=== PATIENT | male | born 1990 | race Caucasian/White ===

== ENCOUNTER 2021-08-27 16:37 | Inpatient (IN) | payer OTHER, SELFPAY ==
[2021-08-27] VITALS (7 sets, daily range): BP systolic 126–148; BP diastolic 69–91; PULSE 96–117; RESP 15–21; TEMP 36.8; O2SAT 99–100; BMI 29.0
[2021-08-27 16:51] LABS: Glucose Point of Care 365 mg/dl (65-105)
[2021-08-27] MEDS: LACTATED RINGERS 1,000 ML 999 ML IV CONT ×2 (17:02→17:56)
[2021-08-27 17:06] LABS: Basophils Absolute Auto 0.1 K/mm3 (0.0-0.1); Basophils Percent Auto 0.5 % (0.2-1.2); Eosinophils Percent Auto 0.2 % (0-4.4); Hematocrit 51.8 % (42.0-52.0); Hemoglobin 16.2 g/dL (14.0-18.0); Immature Granulocyte Percent A 0.9 % (0-0.5); Lymphocytes Absolute Auto 1.42 K/mm3 (0.9-3.2); Lymphocytes Percent Auto 12.7 % (18.3-44.2); Mean Corpuscular HGB Conc 31.3 g/dl (32-36); Mean Corpuscular Hemoglobin 24.9 pg (26-34); Mean Corpuscular Volume 79.6 fl (80-100); Mean Platelet Volume 10.6 fl (7.4-10.4); Monocytes Absolute Auto 1.4 K/mm3 (0.1-0.6); Monocytes Percent Auto 12.8 % (2.6-8.5); Neutrophils Absolute Auto 8.1 K/mm3 (1.3-6.7); Neutrophils Percent Auto 72.9 % (45.5-73.1); Platelet Count Result 311 k/mm3 (150-375); Red Blood Count 6.51 M/mm3 (4.6-6.20); Red Cell Distribution Width 14.8 % (11.5-14.5); White Blood Count 11.2 K/mm3 (4.5-10.0)
[2021-08-27 17:17] LABS: Alanine Aminotransferase 28 U/L (6-50); Albumin Level 4.8 g/dL (3.5-5.1); Alkaline Phosphatase 104 U/L (38-126); Aspartate Amino Transferase 16 U/L (17-59); Bilirubin,Total 0.5 mg/dL (0.2-1.3); Blood Urea Nitrogen 13 mg/dL (9-20); Calcium 8.7 mg/dL (8.4-10.2); Carbon Dioxide < 5 mmol/L (22-30); Chloride 106 mmol/L (98-107); Estimated CRCL calculation 106 ml/min; Estimated Glomerular Filt Rate > 60; Glucose 346 mg/dL (65-110); Magnesium 2.3 mg/dL (1.6-2.3); Potassium 4.8 mmol/L (3.4-5.0); Sodium 131 mmol/L (137-145)
--- NOTE | 2021-08-27 17:50 | ED.RECABL ---
HPI - Recheck/Abnormal Lab/Rx General Chief Complaint: Recheck/Abnormal Lab/Rx Stated Complaint: Possible DKA Time Seen by Provider: 08/27/21 16:47 History of Present Illness HPI narrative: 31-year-old male who states that for the last few days he has been feeling quite, nauseous, he states that he initially thought it was because he was out in the hot sun, however he has been feeling better, denies any fevers or chills, cough. Overall just does not feel well. States it feels like last time he was in DKA, he does have an insulin pump that is working. Related Data Allergies Allergy/AdvReac Type Severity Reaction Status Date / Time No Known Allergies Allergy Verified 08/27/21 16:52 Review of Systems Review of Systems: CONST: Fatigue HEENT: No sore throat C/V: No chest pain RESP: No cough GI: Nausea : No dysuria. M/S: No joint pain. SKIN: No rash. NEURO: [No headache or focal numbness or weakness] PSYCH: [No depression] [facility] Past Medical History Medical History Type 1 diabetes Family History Family History Father Family history of obesity Hypertension Family history of diabetes mellitus in first degree relative Mother Family history of obesity Family history of seizure disorder Grandparent Depression Asthma Diabetes mellitus Social History Social History Smoking status: Never smoker Alcohol intake: never Exam Narrative: EXAMINATION OF ORGAN SYSTEMS/BODY AREAS: Constitutional: Vital signs per nursing GENERAL: Does not look entirely comfortable but alert HEAD: Normal with no signs of head trauma. EYES: EOMI, conjunctiva normal ENT: Hearing grossly intact LUNGS: Tachypneic HEART: Tachycardic ABD: [Soft], [nontender to palpation] EXT: Normal range of motion SKIN: [No rashes or lesions.] NEURO: [Alert and oriented x 3. No gross focal sensory or strength deficits.] PSYCH: Normal affect Course Vital Signs Vital signs: Vital Signs Temperature 98.2 F 08/27/21 16:39 Pulse Rate 117 H 08/27/21 16:39 Respiratory Rate 16 08/27/21 16:39 Blood Pressure 148/88 H 08/27/21 16:39 Pulse Oximetry 99 08/27/21 16:39 Oxygen Delivery Room Air 08/27/21 16:39 Temperature 98.2 F 08/27/21 16:39 Pulse Rate 105 H 08/27/21 18:00 Respiratory Rate 21 H 08/27/21 18:00 Blood Pressure 143/91 H 08/27/21 18:00 Pulse Oximetry 100 08/27/21 18:00 Oxygen Delivery Room Air 08/27/21 16:39 MDM - Recheck/Abnormal Lab/Rx MDM Narrative Medical decision making narrative: 31-year-old male presents with several days of not feeling well, states it feels like his DKA, vital signs normal for tachycardia and tachypnea, on exam he is tachypneic but otherwise does not appear toxic, I am concerned for possible DKA, infection. Patient started on IV fluids. Labs notable for elevated beta hydroxybutyrate, glucose 250, undetectable bicarb. He started on insulin drip, I discussed my concern with the patient, he is amenable to admission, case discussed with hospitalist STOCK COUNTER and ICU attending. Lab Data Result diagrams: 08/27/21 17:00 08/27/21 18:22 Labs: Lab Results 08/27/21 08/27/21 08/27/21 Range/Units 16:43 16:59 16:59 WBC (4.5-10.0) K/mm3 RBC (4.6-6.20) M/mm3 Hgb (14.0-18.0) g/dL Hct (42.0-52.0) % MCV (80-100) fl MCH (26-34) pg MCHC (32-36) g/dl RDW (11.5-14.5) % Plt Count (150-375) k/mm3 MPV (7.4-10.4) fl Immature Gran % (Auto) (0-0.5) % Neut % (Auto) (45.5-73.1) % Lymph % (Auto) (18.3-44.2) % Hendry % (Auto) (2.6-8.5) % Eos % (Auto) (0-4.4) % Baso % (Auto) (0.2-1.2) % Lymph # (Auto) (0.9-3.2) K/mm3 Hendry # (Auto) (0.1-0.6) K/mm3 Eos # (Auto) (0-0.3) K/mm3 Baso # (Auto) (0.0-0.1) K/mm3 Abs Immat Gran (aut
[2021-08-27 17:51] LABS: Beta-Hydroxybutyrate/Acetoacetate 8.34 mmol/L (0.02-0.27)
[2021-08-27] MEDS: INSULIN HUMAN REGULAR (*BKC) 100 UNITS/ML 10 UNITS IV PUSH (17:56)
[2021-08-27] MEDS: METOCLOPRAMIDE HCL INJ 10 MG/2 ML VIAL IV PUSH (17:56)
[2021-08-27 17:58] LABS: Glucose Point of Care 332 mg/dl (65-105)
--- NOTE | 2021-08-27 18:02 | PC.NURSE ---
pt unable to urinate at this time and is declining straight catheter.
[2021-08-27 18:18] LABS: Fractional Inspired Oxygen 21 %; HCO3 VBG 7.7 mEq/l (24.0-30.0); PO2 VBG 35.8 mmHg (35.0-45.0)
[2021-08-27 18:19] LABS: pH VBG 7.116 (7.300-7.400)
[2021-08-27 18:20] LABS: Device ROOM AIR; PCO2 VBG 24.6 mmHg (42.0-48.0)
[2021-08-27 18:25] LABS: Appearance Urine Clear (Clear); Bilirubin Urine 1+ (Negative); Blood Urine 2+ (Negative); Color Urine Yellow (Yellow); Glucose Urine UA 2+ mg/dL (Negative); Ketones Urine 4+ mg/dL (Negative); Leukocyte Esterase Ur Negative LEU/UL (Negative); Nitrate Urine Negative (Negative); Protein Urine 3+ mg/dL (Negative); Specific Grav Ur >= 1.030 (1.001-1.035); Urobilinogen Urine 0.2 mg/dL (<2.0); pH Urine 5.5 (5.0-9.0)
[2021-08-27 18:30] LABS: Mucus Urine Rare /lpf; RBC Urine 0-2 /hpf (0-2); Squamous Epithelial Cell Urine Rare /hpf (Few); WBC Urine 0-3 /hpf
[2021-08-27 18:33] LABS: Add Urine Microscopic? YES
[2021-08-27 18:41] LABS: Anion Gap 19 mmol/L (8-16); Blood Urea Nitrogen 12 mg/dL (9-20); Calcium 8.3 mg/dL (8.4-10.2); Carbon Dioxide 6 mmol/L (22-30); Chloride 110 mmol/L (98-107); Estimated CRCL calculation 117 ml/min; Estimated Glomerular Filt Rate > 60; Glucose 252 mg/dL (65-110); Sodium 135 mmol/L (137-145)
[2021-08-27] MEDS: SODIUM CHLORIDE 0.9% IV 1,000 ML 150 ML IV CONT (18:47)
[2021-08-27] MEDS: INSULIN HUMAN REGULAR (*BKC) 100 UNITS in SODIUM CHLORIDE 0.9% IV 99 ML 5.7 UNITS IV CONT (18:47)
[2021-08-27 18:50] LABS: Hemoglobin A1C 12.7 % (<5.7)
[2021-08-27 18:57] LABS: Glucose Point of Care 242 mg/dl (65-105)
--- NOTE | 2021-08-27 19:50 | PM.IMHP ---
H&P: HPI History of Present Illness Date/Time: 08/27/21 19:50 Chief Complaint: Nausea and vomiting Narrative: This is a 31-year-old male with past medical history significant for type 1 diabetes mellitus patient is on insulin pump. Patient presented to emergency room due to nausea, vomiting ,abdominal pain, generalized weakness, muscle aches and pains, fatigue, unable to eat. Patient has been working outdoors on the [employer] where conditions with high temperatures. Patient denies any chills, fevers, rigors, near-syncope, syncope, lightheadedness, pain or burning with urination, cough or sputum production, no significant weight loss or weight gain. He has a headache. Preliminary workup in the emergency room was significant for DKA. Patient has been admitted for further evaluation management and treatment. Review of Systems Review of Systems: Nausea, vomiting, abdominal pain, generalized fatigue, weakness, muscle aches and pains. Constitutional: Constitutional: Reports body ache(s), Denies chills, Reports fatigue, Denies fever(s), Reports lethargy, Denies night sweats, Reports weakness, Denies weight gain and Denies weight loss Eyes: Eyes: Denies change in vision ENT: Denies dysphagia, Denies vertigo, Denies dizziness, Denies nasal congestion, Denies nasal discharge and Denies odynophagia Cardiovascular: Cardiovascular: Denies syncope, Denies pedal edema, Denies edema, Denies irregular heart rhythm, Denies leg edema, Denies lightheadedness, Denies radiating jaw, neck or arm pain, Denies palpitations, Denies dyspnea, Denies dyspnea on exertion, Denies orthopnea and Denies paroxysmal nocturnal dyspnea Respiratory: Respiratory: Denies chest congestion, Denies cough and Denies dyspnea Gastrointestinal: Gastrointestinal: Reports abdominal pain, Denies dyspepsia, Denies heartburn, Denies diarrhea, Reports nausea and Reports vomiting Genitourinary: Genitourinary: Denies dysuria Musculoskeletal: Musculoskeletal: Reports myalgias and Reports muscle cramps Integumentary/Breasts: Skin/Breast: Denies rash Neurologic: Reports headache(s), Denies focal weakness and Denies Sensory deficit (Neuro) Psychiatric: Psychiatric: Reports no additional psychiatric complaints and Reports as per HPI Endocrine: Endocrine: Denies cold intolerance, Reports fatigue, Denies flushing, Denies heat intolerance, Reports polyphagia, Reports polydipsia, Reports polyuria and Denies palpitations Hematologic/Lymphatic: Hematologic/Lymphatic: Reports no additional hematologic/lymphatic complaints and Reports as per HPI Allergic/Immunologic: Allergic/Immunologic: Reports no additional allergic/immunologic complaints and Reports as per HPI [facility] Past Medical History Medical History Type 1 diabetes Family History Family History Father Family history of obesity Hypertension Family history of diabetes mellitus in first degree relative Mother Family history of obesity Family history of seizure disorder Grandparent Depression Asthma Diabetes mellitus Social History Social History Smoking status: Never smoker Alcohol intake: never Substance use: never Spiritual care concerns: Yes Meds Home Medications and Allergies Home Medications Medication Instructions Recorded Confirmed Type insulin lispro 100 unit/mL 1 ml continuous subcutaneous 08/27/21 08/27/21 History subcutaneous solution (Humalog infusion DAILY U-100 Insulin) sildenafil (pulm.hypertension) 20 3 tablet PO DAILY PRN Sexual 08/27/21 08/27/21 History mg tablet Activity Allergies Allergy/AdvReac Type Severity Reaction Status Date / Time No Known Allergies Allergy Verified 08/27/21 16:52 Vital Signs Vital Signs - 24 hr 08/27/21 16:39 08/27/21 18:00 08/27/21 19:23 Temperature 98.2 F Pulse Rate 117 H 105 H
--- NOTE | 2021-08-27 19:58 | ADMGEN ---
This patient, Andrea Canales Jr., was admitted to Intensive Care Unit-2. Patient/family oriented to hospital policies and general routines including ID bracelet, bed and alarms, visiting hours, pain management, procedures, bathroom and other care routines, personal items, smoking policy, room service/diet, and visiting hours. Information on how to activate the Rapid Response Team has been discussed. Patient/Family are encouraged to report perceived risks to care and to ask questions if they do not understand what they are told or what they should do.
[2021-08-27] MEDS: ONDANSETRON INJ 4 MG/2 ML VIAL IV PUSH (20:00)
[2021-08-27] MEDS: KCL 20 MEQ/D5/0.45% SOD CHL 1,000 ML 150 ML IV CONT (20:10)
[2021-08-27] MEDS: ACETAMINOPHEN 500 MG TABLET 1000 MG PO (20:50)
[2021-08-27] MEDS: SODIUM CHLORIDE 0.9% IV 1,000 ML 500 ML IV CONT (20:51)
[2021-08-27 22:22] LABS: Anion Gap 9 mmol/L (8-16); Blood Urea Nitrogen 11 mg/dL (9-20); Calcium 7.7 mg/dL (8.4-10.2); Carbon Dioxide 13 mmol/L (22-30); Chloride 111 mmol/L (98-107); Estimated CRCL calculation 113 ml/min; Estimated Glomerular Filt Rate > 60; Glucose 181 mg/dL (65-110); Potassium 4.3 mmol/L (3.4-5.0); Sodium 133 mmol/L (137-145)
[2021-08-27 22:58] LABS: Glucose Point of Care 192 mg/dl (65-105)
[2021-08-27 22:58] LABS: Glucose Point of Care 200 mg/dl (65-105)
[2021-08-27 22:58] LABS: Glucose Point of Care 193 mg/dl (65-105)
[2021-08-28] VITALS (10 sets, daily range): BP systolic 111–144; BP diastolic 60–84; PULSE 83–99; RESP 13–18; TEMP 36.4–36.9; O2SAT 98–100; BMI 30.1
[2021-08-28 00:22] LABS: Glucose Point of Care 188 mg/dl (65-105)
[2021-08-28 01:41] LABS: Glucose Point of Care 187 mg/dl (65-105)
[2021-08-28 02:06] LABS: Anion Gap 9 mmol/L (8-16); Blood Urea Nitrogen 10 mg/dL (9-20); Calcium 7.6 mg/dL (8.4-10.2); Carbon Dioxide 15 mmol/L (22-30); Chloride 110 mmol/L (98-107); Estimated CRCL calculation 127 ml/min; Estimated Glomerular Filt Rate > 60; Glucose 174 mg/dL (65-110); Potassium 4.2 mmol/L (3.4-5.0); Sodium 134 mmol/L (137-145)
[2021-08-28] MEDS: KCL 20 MEQ/D5/0.45% SOD CHL 1,000 ML 150 ML IV CONT ×2 (02:56→09:06)
[2021-08-28 03:06] LABS: Glucose Point of Care 145 mg/dl (65-105)
[2021-08-28] MEDS: INSULIN HUMAN REGULAR (*BKC) 100 UNITS in SODIUM CHLORIDE 0.9% IV 99 ML 7.2 UNITS IV CONT (04:13)
[2021-08-28 04:18] LABS: Glucose Point of Care 151 mg/dl (65-105)
[2021-08-28 05:45] LABS: Glucose Point of Care 185 mg/dl (65-105)
[2021-08-28] MEDS: ONDANSETRON INJ 4 MG/2 ML VIAL IV PUSH (05:59)
[2021-08-28 06:02] LABS: Hematocrit 40.6 % (42.0-52.0); Hemoglobin 13.5 g/dL (14.0-18.0); Mean Corpuscular HGB Conc 33.3 g/dl (32-36); Mean Corpuscular Hemoglobin 25.4 pg (26-34); Mean Corpuscular Volume 76.3 fl (80-100); Mean Platelet Volume 10.4 fl (7.4-10.4); Platelet Count Result 206 k/mm3 (150-375); Red Blood Count 5.32 M/mm3 (4.6-6.20); Red Cell Distribution Width 14.1 % (11.5-14.5); White Blood Count 6.7 K/mm3 (4.5-10.0)
[2021-08-28 06:17] LABS: Anion Gap 10 mmol/L (8-16); Blood Urea Nitrogen 8 mg/dL (9-20); Calcium 7.5 mg/dL (8.4-10.2); Carbon Dioxide 13 mmol/L (22-30); Chloride 112 mmol/L (98-107); Estimated CRCL calculation 165 ml/min; Estimated Glomerular Filt Rate > 60; Glucose 180 mg/dL (65-110); Potassium 4.1 mmol/L (3.4-5.0); Sodium 135 mmol/L (137-145)
[2021-08-28 06:51] LABS: Glucose Point of Care 175 mg/dl (65-105)
[2021-08-28] MEDS: LACTATED RINGERS 1,000 ML 999 ML IV CONT (07:28)
[2021-08-28] MEDS: ENOXAPARIN 40 MG/0.4 ML SYRINGE SUB-Q (08:09)
[2021-08-28] MEDS: PANTOPRAZOLE SODIUM IV 40 MG VIAL IV PUSH (08:09)
[2021-08-28 08:14] LABS: Glucose Point of Care 149 mg/dl (65-105)
[2021-08-28 09:09] LABS: Glucose Point of Care 120 mg/dl (65-105)
--- NOTE | 2021-08-28 09:56 | WPDCNINT ---
Assessment and Plan Assessment and plan (1) DKA, type 1: Code(s): E10.10 - Type 1 diabetes mellitus with ketoacidosis without coma Status: Acute Assessment and Plan: Patient presented the ED with nausea, vomiting, abdominal pain, fatigue, generalized weakness -was found to be in diabetic ketoacidosis with elevated beta hydroxybutyrate and urine ketones -Patient was given a total of 4 L of IV fluids -anion gap has closed, will transition patient to long-acting insulin and sliding scale insulin -diabetic diet -hemoglobin A1c is 12.7 -wound dietitian and ict educator consulted -patient states he bought his insulin pump on line, His friend adjusts his insulin setting -follows Dr. Zhang at [facility] endocrinology (2) Nausea & vomiting: Code(s): R11.2 - Nausea with vomiting, unspecified Status: Acute Assessment and Plan: Resolved, likely related DKA Plan life educator to evaluate the patient Dietitian consult Diabetic diet Additional Plan DVT prophylaxis: Lovenox Code status: Full code Critical care time spent: 42 minutes This dictation may have been done utilizing a voice recognition system. Attempts have been made to correct errors. However, there may be uncorrected grammatical, spelling, and recognition errors present. Due to a high probability of clinically significant, life threatening deterioration, the patient required my highest level of preparedness to intervene emergently and I personally spent this critical care time directly and personally managing the patient. This critical care time included obtaining a history; examining the patient; pulse oximetry; ordering and review of studies; arranging urgent treatment with development of a management plan; evaluation of patient's response to treatment; frequent reassessment; and discussions with other providers. It was exclusive of separately billable procedures and treating other patients and teaching time. Please see Assessment and Plan section and the rest of the note for further information on patient assessment and treatment Career Services Representative Consult Note Consult date: 08/28/21 Reason for consult: Diabetic ketoacidosis, nausea, vomiting, elevated blood sugars, insulin pump not working HPI: Andrea Canales JrKailey is a 31 year old male with past medical history of type 1 diabetes on insulin pump, presented the ED on 152 with complains of nausea, vomiting, abdominal pain, generalized weakness, muscle aches and pains, fatigue, decreased oral intake, polyuria, polydipsia. 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 Patient also thinks that his insulin pump was not functioning well as his blood sugars were high. In the ED patient was found to anion gap metabolic acidosis with hyperglycemia along with elevated beta hydroxybutyrate, urine with ketones and protein and glucose. Patient was given 2 L IV fluids in the ER and additional 1 L fluid bolus in the ICU, patient was placed on insulin infusion and transferred to the ICU for further management. Patient seen and examined this morning in the ICU, pleasant gentleman in no acute distress, states he had episodes of nausea and emesis this morning but denies any chest pain, shortness of breath, abdominal pain, shortness of breath at this time. Remains on insulin infusion, his CO2 is 13 but his anion gap has closed. Patient is hemodynamically stable, afebrile, adequate urine output. I have asked the bedside RN to given additional IV fluid bolus of 1 L normal saline as patient was tachycardic. Once his bolus was done patient's heart rate has improved, Currently in sinus rhythm, regular rate. Review of Systems Review of Systems: All systems reviewed & are unremarkable except as noted in HPI and below PMFSH Past Medical History Medical History Type 1 diabetes Family History Family History (Reviewed 08/27
[2021-08-28 10:02] LABS: Glucose Point of Care 125 mg/dl (65-105)
[2021-08-28 10:42] LABS: Anion Gap 6 mmol/L (8-16); Blood Urea Nitrogen 7 mg/dL (9-20); Calcium 7.6 mg/dL (8.4-10.2); Carbon Dioxide 17 mmol/L (22-30); Chloride 113 mmol/L (98-107); Estimated CRCL calculation 165 ml/min; Estimated Glomerular Filt Rate > 60; Glucose 120 mg/dL (65-110); Potassium 3.6 mmol/L (3.4-5.0); Sodium 136 mmol/L (137-145)
[2021-08-28] MEDS: INSULIN GLARGINE (*BKC) 100 UNITS/ML 40 UNITS SUB-Q (11:07)
--- NOTE | 2021-08-28 12:05 | PCDIET ---
Dietitian consult for DKA. See Nutritional Teaching Intervention. Thank you for the consult.
--- NOTE | 2021-08-28 12:23 | PM.IMPN ---
Progress Note: A&P Assessment and Plan (1) DKA, type 1: Code(s): E10.10 - Type 1 diabetes mellitus with ketoacidosis without coma Status: Acute Assessment and Plan: Patient presented the ED with nausea, vomiting, abdominal pain, fatigue, generalized weakness Noted to be in DKA with elevated beta hydroxybutyrate and urine ketones Received IV fluid resuscitation and IV insulin Now transition to long-acting insulin and sliding scale insulin with meals Diabetic diet A1c is 12.7. hospital orderly consultation Continue Lantus and Humalog/NovoLog SSI (2) Nausea & vomiting: Code(s): R11.2 - Nausea with vomiting, unspecified Status: Acute Assessment and Plan: Resolved, likely related DKA Plan hospice plan administrator to evaluate the patient Dietitian consult Diabetic diet Additional Plan DVT prophylaxis: Lovenox Code status: Full code Subjective Date/time seen: 08/28/21 12:23 Interval history: HPI:This is a 31-year-old male with past medical history significant for type 1 diabetes mellitus patient is on insulin pump.? Patient presented to emergency room due to nausea, vomiting ,abdominal pain, generalized weakness, muscle aches and pains, fatigue, unable to eat.? Patient has been working outdoors on the [place] where conditions with high? temperatures.? Patient denies any chills, fevers, rigors, near-syncope, syncope, lightheadedness, pain or burning with urination, cough or sputum production, no significant weight loss or weight gain.? He has a headache.? Preliminary workup in the emergency room was significant for DKA.? Patient has been admitted for further evaluation management and treatment. 08/28/2021 no overnight events. He is off insulin drip. Started on Lantus based. He is normally on insulin pump. Review of Systems Review of Systems: All systems reviewed & are unremarkable except as noted in HPI and below Exam Narrative: General: Well-built gentleman in no acute distress HEENT: Pupils equal reactive, sclera is clear, moist oral mucosa Neck:Supple, no cervical lymphadenopathy upple Respiratory: Clear to auscultation bilaterally, no wheezing Cardiac: S1-S2 normal, regular rate and rhythm Abdomen: Soft, nontender, nondistended, Normoactive bowel sounds Extremities: No Edema, palpable pedal pulse Neuro: Patient is awake, alert, oriented x3, nonfocal Skin: No lesions noted, skin is warm and intact Psych: Normal affect and mentation Objective Data Vital Signs Vital Signs: Vital Signs - 24 hr 08/27/21 16:39 08/27/21 18:00 08/27/21 19:23 Temperature 98.2 F Pulse Rate 117 H 105 H 110 H Respiratory Rate 16 21 H 18 Blood Pressure 148/88 H 143/91 H 147/91 H Pulse Oximetry 99 100 100 Oxygen Delivery Room Air 08/27/21 21:13 08/27/21 20:00 08/27/21 22:00 Temperature Pulse Rate 100 103 H 98 Respiratory Rate 16 Blood Pressure Pulse Oximetry 100 Oxygen Delivery Room Air 08/27/21 22:00 08/27/21 23:41 08/28/21 00:00 Temperature 98.3 F Pulse Rate 100 96 99 Respiratory Rate 16 15 16 Blood Pressure 126/69 135/82 Pulse Oximetry 100 100 100 Oxygen Delivery Room Air 08/28/21 00:00 08/28/21 02:00 08/28/21 02:00 Temperature Pulse Rate 95 91 92 Respiratory Rate 13 Blood Pressure 133/84 Pulse Oximetry 100 Oxygen Delivery 08/28/21 03:30 08/28/21 04:00 08/28/21 04:00 Temperature 98.5 F Pulse Rate 91 93 97 Respiratory Rate 14 15 Blood Pressure 113/63 Pulse Oximetry 100 100 Oxygen Delivery Room Air 08/28/21 06:00 08/28/21 06:00 08/28/21 08:00 Temperature 97.9 F Pulse Rate 89 89 87 Respiratory Rate 18 13 Blood Pressure 144/80 H 111/60 Pulse Oximetry 100 100 Oxygen Delivery 08/28/21 08:00 08/28/21 08:00 08/28/21 10:00 Temperature Pulse Rate 85 86 Respiratory Rate 15 Blood Pressure 133/81 Pulse Oximetry 100 100 Oxygen Delivery Room Air 08/28/21 10:00 08/28/21 12:00 Temperat
[2021-08-28 12:24] LABS: Glucose Point of Care 108 mg/dl (65-105)
--- NOTE | 2021-08-28 16:40 | PC.NURSE ---
pt transferred in to room 260 via wheelchair, oriented to new room and environment, reviewed plan of care and new orders, pt has dinner tray ordered, will monitor BS per MD order
--- NOTE | 2021-08-28 16:44 | PC.NURSE ---
This patient, Andrea Canales Jr., was transferred to [260] on 08/28/21 at 1635. Personal belongings sent with patient. Report given to [NEHEMIAS Bright @ [id number] ]. Appropriate documentation sent with patient.
[2021-08-28 17:29] LABS: Glucose Point of Care 206 mg/dl (65-105)
[2021-08-28] MEDS: INSULIN ASPART (*BKC) 100 UNITS/ML SUB-Q (18:10)
[2021-08-28 21:10] LABS: Glucose Point of Care 262 mg/dl (65-105)
[2021-08-29 05:35] VITALS: BP 117/75; PULSE 85; RESP 14; TEMP 36.4; O2SAT 100
[2021-08-29 05:53] LABS: Hematocrit 39.2 % (42.0-52.0); Hemoglobin 12.7 g/dL (14.0-18.0); Mean Corpuscular HGB Conc 32.4 g/dl (32-36); Mean Corpuscular Hemoglobin 25.2 pg (26-34); Mean Corpuscular Volume 77.8 fl (80-100); Mean Platelet Volume 10.5 fl (7.4-10.4); Platelet Count Result 174 k/mm3 (150-375); Red Blood Count 5.04 M/mm3 (4.6-6.20); Red Cell Distribution Width 14.4 % (11.5-14.5); White Blood Count 4.5 K/mm3 (4.5-10.0)
[2021-08-29 06:06] LABS: Anion Gap 5 mmol/L (8-16); Blood Urea Nitrogen 6 mg/dL (9-20); Calcium 7.9 mg/dL (8.4-10.2); Carbon Dioxide 22 mmol/L (22-30); Chloride 110 mmol/L (98-107); Estimated CRCL calculation 165 ml/min; Estimated Glomerular Filt Rate > 60; Glucose 213 mg/dL (65-110); Phosphorus 1.7 mg/dL (2.5-4.5); Potassium 3.5 mmol/L (3.4-5.0); Sodium 137 mmol/L (137-145)
[2021-08-29 07:30] LABS: Glucose Point of Care 213 mg/dl (65-105)
[2021-08-29] MEDS: ENOXAPARIN 40 MG/0.4 ML SYRINGE SUB-Q (08:08)
[2021-08-29] MEDS: PANTOPRAZOLE SODIUM IV 40 MG VIAL IV PUSH (08:08)
[2021-08-29 11:37] LABS: Glucose Point of Care 201 mg/dl (65-105)
--- NOTE | 2021-08-29 12:30 | PCCDE ---
diabetes education f/up: spoke to Dr Myers this am regarding concern that ICR and SF may be too strong. Pt hasn't been using them and potential for hypoglycemia. However pt declined to change his settings. He sts these are the same settings he used before and they worked. Pt again confirms that he will be seeing endo 10/08 as the doctor will no longer rx his insulin if he does not f/up.
--- NOTE | 2021-08-29 12:55 | PM.DS ---
DS: Admitting Diagnosis Discharge Date 08/29/2021 Admitting Diagnosis DKA DS: Discharge Diagnosis Discharge Diagnosis (1) DKA, type 1: Code(s): E10.10 - Type 1 diabetes mellitus with ketoacidosis without coma Status: Acute Assessment and Plan: Patient presented the ED with nausea, vomiting, abdominal pain, fatigue, generalized weakness he was Noted to be in DKA with elevated beta hydroxybutyrate and urine ketones he was admitted to the ICU and Received IV fluid resuscitation and IV insulin he was then transitioned to long-acting insulin with sliding scale with meals. He was started on diabetic diet which he tolerated well. His A1c is 12.7. Diabetes could was consulted. He is on insulin pump prior to admission and has been on the pump for the past several years. He has a basal rate of 2 units/hour of insulin in his pump along with bolus regimen. His IC artery is 1 is to 6 along with correctional factor 1 is to 15. he however has not been using is bolus regimen at all. It was advised him to use bolus regimen whenever is controlled his blood. he does follow is this is in [place]. With his high ICR suggested to lower the setting to 1 : 10 or 1:15 . However the patient was hesitant in Any changes in his insulin pump setting. 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 his pump was started back on 08/29/2021 morning. (2) Nausea & vomiting: Code(s): R11.2 - Nausea with vomiting, unspecified Status: Acute Assessment and Plan: Resolved, likely related DKA Plan ict educator to evaluate the patient Dietitian consult Diabetic diet DS: Summary Hospital Course Hospital Course: see above Time Spent with Patient Time attestation: Total time spent providing and/or coordinating discharge services: 60 minutes Exam Narrative: General: Well-built gentleman in no acute distress HEENT: Pupils equal reactive, sclera is clear, moist oral mucosa Neck:Supple, no cervical lymphadenopathy upple Respiratory: Clear to auscultation bilaterally, no wheezing Cardiac: S1-S2 normal, regular rate and rhythm Abdomen: Soft, nontender, nondistended, Normoactive bowel sounds Extremities: No Edema, palpable pedal pulse Neuro: Patient is awake, alert, oriented x3, nonfocal Skin: No lesions noted, skin is warm and intact Psych: Normal affect and mentation DS: Data Data Completed and Pending Labs on day of discharge: Labs from last 24 hours 08/29/21 08/29/21 08/29/21 11:34 07:28 05:35 WBC RBC Hgb Hct MCV MCH MCHC RDW Plt Count MPV Sodium 137 Potassium 3.5 Chloride 110 H Carbon Dioxide 22 Anion Gap 5 L BUN 6 L Creatinine 0.60 L Estim Creat Clear Calc 165 Estimated GFR > 60 Glucose 213 H POC Capillary Glucose 201 H 213 H Calcium 7.9 L Phosphorus 1.7 L Magnesium 2.0 08/29/21 08/28/21 08/28/21 05:35 21:02 17:26 WBC 4.5 RBC 5.04 Hgb 12.7 L Hct 39.2 L MCV 77.8 L MCH 25.2 L MCHC 32.4 RDW 14.4 Plt Count 174 MPV 10.5 H Sodium Potassium Chloride Carbon Dioxide Anion Gap BUN Creatinine Estim Creat Clear Calc Estimated GFR Glucose POC Capillary Glucose 262 H 206 H Calcium Phosphorus Magnesium Discharge Plan Discharge Attending physician on discharge: Renaldo Myers Consulting providers: Alan Caro Discharging Clinician: Renaldo Myers Anticipated Discharge Date/Time: 08/29/21 12:50 Patient Disposition: Home, Self-Care Activity: as tolerated Diet: diabetic Patient Instructions: Antibiotic Form, Diabetic Ketoacidosis (DC), Basic Carbohydrate Counting (DC) Stand Alone Forms: General Discharge Information Follow-up/Referrals: Teddy Atkins DO [Primary Care Provider] - 1 Week Discharge Medications: New (DME) blood-gluc
== END 2021-08-29 13:16 | disposition home or self-care (01) | DRG 639 ==
LOC: ANHED 18:53 → ANHICU 19:02 → ANH2MED 08-28 16:37
PROVIDERS: Internal Medicine; Admitting Provider Internal Medicine; Emergency Provider Emergency Medicine; PCP Internal Medicine; Visit Provider Internal Medicine
DX: E10.10 Type 1 diabetes mellitus with ketoacidosis without coma (principal)
CPT/HCPCS: 36415; 80048; 80053; 81001; 82010; 82803; 82948; 83036; 83735; 84100; 85025; 85027; 96360; 99285; A9270; C9113; J1650; J1815; J2405; J2765; J3480; J7030; J7120

== ENCOUNTER 2023-05-11 07:59 | Outpatient (CLI) | payer OTHER, SELFPAY ==
--- NOTE | ~2023-05-11 | US_ITS ---
Limited Abdominal Sonogram: Real-time sonographic imaging of the right upper quadrant was performed. Clinical History: Abnormal liver enzymes Findings: The liver appears mildly echogenic with no evidence of mass lesion or bile duct dilatation . Main portal vein demonstrates normal direction of flow. The gallbladder is well distended, and appe ars normal with no evidence of gallstone or wall thickening. The common bile duct measures 3 mm. The visualized pancreas, aorta, and IVC are unremarkable. Right kidney measures 11.6 cm in length, witho ut hydronephrosis. Impression: Possible fatty infiltration of liver. Reviewed, dictated and finalized at location . [place] SURGERY DOCTOR Impression: Possible fatty infiltration of liver.
== END 2023-05-11 08:00 ==
PROVIDERS: PCP Student in an Organized Health Care Education/Training Program; Visit Provider Student in an Organized Health Care Education/Training Program
DX: R74.8 Abnormal levels of other serum enzymes (principal)
CPT/HCPCS: 76705

== ENCOUNTER 2024-10-08 16:20 | Emergency (ER) | payer OTHER, SELFPAY ==
--- NOTE | ~2024-10-08 | XR_ITS ---
EXAM: XR foot LT min 3V DATE: 10/08/2024 16:44 HISTORY: pain . COMPARISON: None available. FINDINGS: Normal mineralization. Transverse nondisplaced fractures in the proximal left third fourth and fifth metatarsals, with sclerotic appearing margins. 2 mm distraction noted in the fifth metatar doug fracture, fractures are otherwise nondisplaced. No lytic or blastic lesion. Joint spaces are main tained. No erosion or periosteal change. Mild vascular calcification. Suggestion of soft tissue swell ing over the fracture site. IMPRESSION: Transverse fractures of the proximal left third through fifth metatarsals. 2 mm distracti on noted in the fifth metatarsal fracture. Sclerotic margins indicated these may be subacute fracture s. Reviewed, dictated and finalized at location K. IMPRESSION: Transverse fractures of the proximal left third through fifth metat arsals. 2 mm distraction noted in the fifth metatarsal fracture. Sclerotic jayro ins indicated these may be subacute fractures.
--- OUTSIDE RECORDS SUMMARY | 2024-10-08 16:23 | XMS_ITS | Continuity of Care Document ---
Author Organization [facility] Address [address] [address] [place] [address] Phone Care Team Providers Care Senior Applications Architect Name Role Phone Danilo Perez MD Unavailable Unavailable Allergies, Adverse Reactions, Alerts Substance Reaction Status Criticality No Known Allergies Active No Inform ation Procedures Procedure Date PREV VISIT, EST, AGE 18-39 OFFICE/OUTPATIENT VISIT, EST PREV VISIT, EST, AGE 18-39 OFFICE/OUTPATIENT VISIT, EST PREV VISIT, EST, AGE 18-39 Advance Directives Directive Yes / No Effective Date File Name No Information Encounters Encounter Description Practice Location Reason(s) For Visit Diagnoses Date Provider Providers Copied on Encounter PREV VISIT, EST, AGE 18-39 [facility], [address] [place] [address] [place], [id number], tel:[phone] [facility] DM (chief complaint) cough1 (chief complaint) hypokalemi a1 (chief complaint) anemia1 (chief complaint) Type 1 diabetes mellitus without complicationsHypoka lemiaAnemiaDizzines sEncounter for general adult medical exam w abnormal findingsCoughEncntr for general adult medical exam w/o abnormal findings May-201 8 Chris Carrasco. [address], [facility] [place], [id number] , [place]. tel:[phone] Referring Provider: Danilo Perez [address], [place], [place], [id number]. tel:[phone] PREV VISIT, EST, AGE 18-39 [facility], [address] [place], [id number], [place] tel:[phone] [facility] Physical (chief complaint) Encounter for general adult medical exam w abnormal findingsType 1 diabetes mellitus without complicationsAcute bronchitis, unspecified 7 Chris Carrasco. [address], [place], [place], [id number] , . tel:[phone] Referring Provider: iJm Fontaine [address], [place], [place], [id number]. tel:[phone] PREV VISIT, EST, AGE 18-39 [facility], [address], [place], [place], [id number], tel:[phone] [facility] Physical (chief complaint) Routine Medical ExamDietary surveillance and counselingRoutine Medical Exam 5 Chris Carrasco. [address], [place], [place], [id number] , . tel:[phone] Referring Provider: Jim Font[address], [place], [place], [id number]. tel:[phone] Family History Family Member Type Diagnosis Age At Onset Father Problem (finding) Hypertension Mother Problem (finding) Anxiety Mother Problem (finding) Back Pain Father Problem (finding) Coronary artery disease Father Problem (finding) Diabetes mellitus Payers Payer name Insurance type Covered alliance party ID Authoriza tion(s) No Information Social History Type Description Quantity Date Captured Comments Alcohol Use Details No Caffeine Use Details Unknown Tobacco Use Status Never smoked tobacco 2017 Smoking Status Never smoker Sex Male Vital Signs Date / Time: Height Weight BMI Pulse Rate Blood Pressure Temperature Respiratory Rate Body Surface Area Head Circumference BMI percentile Pulse Ox Inhaled Ox 5:30 PM 69.00 in 199.80 lbs 29.5 1 kg/m eter (2) 91 /min 122/85 mm[Hg] 98.3 F 16 /min Chief Complaint And Reason For Visit From encounter dated '06/07/2017 16:15'. DM (chief complaint). Description: Pt recently went to hospital for DKA and his BG was on average around 300. Pt got his insulin pump done and his Bg is around 121. Pt states that he feels slightly dizzy, mild photophobia without blurred vision. Pt denies any headache. cough1 (chief complaint). Description: Pt has mild dry cough for 2-3 days. Pt denies any chest painor sob. Pt denies any sore throat, fever headache hypokalemia1 (chief complaint). Description: Pt did have mild hypokalemia. which was replaced by hospital. Pt denies any chest pain palpitation anemia1 (chief complaint). Description: Pt had mild anemia in hospital. Pt denies any blood loss. Pt denies any chest pain or headache. Pt denies any orthostasis Plan Of Treatment Date Type Action Status Goal Special diet education compl eted Referral Ordered: Endocrinology, Diabetes and Metabolism (related to Type 1 diabetes mellitus without complications) ordered Referral Ordered: Referrals: Endocrinology, Diabetes and Metabolism. Evaluate and treat ordered Referral Ordered: Referral: Otolaryngology. ordered History Of Present Illness Encounter Date Complaint History Of Prese nt Illness DM Pt recently went to hospital for DKA and his BG was on average around 300. Pt got his insulin pump done and his Bg is around 121. Pt states that he feels slightly dizzy, mild photophobia without blurred vision. Pt denies any headache. cough1 Pt has mild dry cough for 2-3 days. Pt denies any chest pain or sob. Pt denies any sore throat, fever headache hypokalemia1 Pt did have mild hypokalemia. which was replaced by hospital. Pt denies any chest pain palpitation anemia1 Pt had mild anem ia in hospital. Pt denies any blood loss. Pt denies any chest pain or headache. Pt denies any orthostasis Physical Pt needs annual physical. pt has poorly controlled diabete. Pt use humalog insulin pump and his BG is over 400 all the time. Pt states that he is out of [employer] inset 30 infusion system for 2 weeks now and he has been using syringes to give himself insulin. Pt has not been been able to use the pump due to lack of above infusion system. Pt tried to call his endo mutlple times but he could not get in touch with the endo. His BG is aroudn 400 today. pt denies any polyuira, polyipdisa Pt denies any vision change. Pt also c/o sinus congestion productive coughing with yellow and green phlegm for one week. Pt denies any sob or chest pain. pt denies any fever. Instructions Date Instruction Additional Infor mation Special diet education Related t o Body mass index (BMI) 29.0-29.9, adult Increase physical activity Relat ed to Hypokalemia Weight management Related to Hyp okalemia Prescribed Diet Educ ation/Lifestyle Education Regarding Diet Related to Dietary Surveillance and Counseling Prescribed Activity and Exercise Education Related to Dietary Surveillance and Counseling Increase physical activity Relat ed to Encounter for general adult medical exam w abnormal findings Weight management Related to Enc ounter for general adult medical exam w abnormal findings Physical activity counseling Rel ated to Dietary surveillance counseling Decrease caloric intake Related to Dietary surveillance counseling Assessments Type Assessment Date assessment Type 1 diabetes mellitus without complications assessment Hypokalemia assessment Anemia assessment Dizziness assessment Encounter for general adult medi lauryn exam w abnormal findings assessment Cough assessment Encntr for general adult medical exam w/o abnormal findings Mental Status Date Cognitive Assessment Orientation - [place] ed to time, place, person, situation.
--- OUTSIDE RECORDS SUMMARY | 2024-10-08 16:23 | XMS_ITS | Clinical Summary ---
Author Organization [facility] Risk Ident Address [address] [place] [address] Care Team Providers Care Cleaner Wall Name Role Phone Harsh Tom Primary Care Provider + Source Comments [facility] Risk Ident,non-owned Affiliates and Associated Physician Practices is amultiple site organization consisting of ambulatory clinics and hospital sitesin [place], [place] and [place]. This disclosure is being madepursuant to the Care Everywhere program and may not contain all information available regarding this patient. Last updated 17.[facility] Risk Ident Allergies No known active allergies Medications * Be aware that medications may not be up to date on this document. Alwaysverify current medications with the patient. ONE TOUCH ULTRASOFT LANCETS MISC Use 2 Each as instructed once daily Active blood glucose test strip Use 2 strips as instructed once daily Active Blood Glucose Monitoring Suppl (ONE TOUCH ULTRA 2) w/Device KIT Use 2 Each once daily Active blood glucose monitoring device (ONE TOUCH ULTRA) device TEST BS 4 TO 6 XD. 01/07/20 19 Active Continuous Blood Gluc Animal Nursery Worker (DEXCOM G6 KNOT SAW OPERATOR) DEVIIndications: DM w/ coma type I, uncontrolled Use 1 Each once daily E10.65 TYPE 1 DM WITH HYPERGLYCEMIA UNCONTROLLED 1 Each 12/18/19 20 Active Continuous Blood Gluc Sensor (DEXCOM G6 SENSOR) MISCIndications: DM w/ coma type I, uncontrolled Use 1 packet every 10 days DISPENSE 3 PACKET TO CHANGE EVERY 10 DAYS. 3 Each 3 12/18/19 20 Active Continuous Blood Gluc Transmit (DEXCOM G6 TRANSMITTER) MISCIndications: DM w/ coma type I, uncontrolled Use 1 Each Every 90 days CHANGE EVERY 90 DAYS 1 Each 3 12/18/19 20 Active sildenafil (REVATIO) 20 MG tabletIndication s:DM w/ coma type I, uncontrolled Take 3 tablets 30 min before sex 30 tablet 5 11/07/19 21 Active HUMALOG 100 UNIT/ML vialIndications: DM w/ coma type I, uncontrolled INJECT 70 UNITS TO 100 UNITS SUBCUTANEOUSLY ONCE DAILY VIA INSULIN PUMP 30 mL 07/23/19 22 Active Active Problems Problem Noted Date Diagnosed Date Type 1 diabetes mellitus without complication Family History Medical History Relation Name Comments CAD (Coronary Artery Disease) Father Diabetes - Type 2 Father Hypertension Father Cancer - Colon Maternal Grandmother CAD (Coronary Artery Disease) Paternal Grandfather Diabetes - Type 2 Paternal Grandfather Relation Name Status Comments Father Alive Maternal Grandfather Alive Maternal Grandmother Alive Mother Alive Paternal Grandfather Alive Paternal Grandmother Alive Social History Tobacco Use Types Packs/Day Years Used Date Smoking Tobacco: Never Smokeless Tobacco: Never Alcohol Use Standard Drinks/Week Comments Not Currently 0 (1 standard drink = 0.6 oz pur e alcohol) twice a month Sex and Gender Information Value Date Recorded Sex Assigned at Not on file Legal Sex Male 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 Gender Identity Not on file Sexual Orientation Not on file Last Filed Vital Signs Vital Sign Reading Time Taken Comments Blood Pressure 122/86 12/28/2019 9:02 AM CDT Pulse 98 12/14/2019 8:31 AM CDT Temperature 36.5 C (97.7 F) 12/14/2019 8:31 AM CDT Respiratory Rate - - Oxygen Saturation 100% 12/14/2019 8:31 AM CDT Inhaled Oxygen Concentration - - Weight 95.9 kg (211 lb 6.4 oz) 12/28/2019 9:02 A M CDT Height 172.7 cm (5' 8) 12/28/2019 9:02 AM CDT Body Mass Index 32.14 12/28/2019 9:02 AM CDT Plan of Treatment Health Maintenance Due Date Last Done Comments HIV SCREENING 2005 HEPATITIS C SCREENING 03/24/2008 DIABETES-SERUM CREATININE 2008 DTAP/TDAP/TD VACCINES (1 - Tdap) 2009 HEPATITIS B VACCINE (1 of 3 - 19+ 3-dose series) 2009 PNEUMOCOCCAL VACCINE (1 of 2 - PCV) 2009 HPV VACCINE (1 - 3-dose SCDM series) 2017 DIABETES-FOOT EXAM WITH MONOFILAMENT 12/14/2019 DIABETES-HGB A1C 06/13/2020 12/14/2019 COVID-19 VACCINE (1 - 2023-2 5 season) 2023 DIABETES RETINOPATHY SCREENING 12/19/2023 12/18/2021 DEPRESSION SCREENING 03/15/2024 DIABETES - URINE PROTEIN SCREENING 03/15/2024 INFLUENZA VACCINE (#1) 2024 ZOSTER VACCINE (1 of 2) 2040 HIB VACCINE Aged Out No longer eligi ble based on patient's age to complete this topic MENINGOCOCCAL (Group B) VACC INE SHARED DECISION-MAKING Aged Out No longer eligibl e based on patient's age to complete this topic MENINGOCOCCAL GROUPS A/C/Y/W VACCINE Aged Out No longer eligible b ased on patient's age to complete this topic Goals Goal Patient Goal Type Associated Problems Recent Progress Patient-Stated? Author Medication Management General Yes Sonia Martinez, NEHEMIAS Follow-up with Diabetes Clinic as recommended by Provider General Yes Sonia Martinez, NEHEMIAS Plan meals Lifestyle Yes Sonia Martinez RN Note: Using meal raw material planner. Procedures Procedure Name Priority Date/Time Associated Diagnosis Comments EYE EXAM 12/18/2021 HEMOGLOBIN A1C - POINT OF CARE (AMB) [facility] Routine 12/14/2019 9:38 AM CDT Other specified diabetes mellitus with other specified complication, unspecified whether [facility]p insulin use from Last 3 Months or Most Recently Relevant to Health Maintenance Results * EYE EXAM (12/18/2021) Anatomical Region Laterality Modality Other 12/18/2021 Narrative 12/18/2021 Ordered by an unspecified provider. us Scanned Document SCANNING ONLY Final Result * HEMOGLOBIN A1C - POINT OF CARE (AMB) [facility] (12/14/2019 9:38 AM CDT) Hemoglobin A1c POCT 11.2 BLOOD SPECIMEN / Unknown 12/14/2019 9:38 AM CDT Jose Carolina MD LAB - POINT OF CARE ORDERABLE S Final Result from Last 3 Months or Most Recently Relevant to Health Maintenance Insurance AETNA AETNA AETNA AETNA AETNA Care Teams Cleaner Wall Relationship Specialty Start Date End Date Harsh Tom DO [address] [place] [address] PCP - General 10/03/19
--- OUTSIDE RECORDS SUMMARY | 2024-10-08 16:23 | XMS_ITS | Encounter Summary ---
Author Organization [facility] Address [address] [place] [address] Care Team Providers Care Out Of School Hours Care Worker Name Role Phone Harsh Tom DO Primary Care Provider + Reason for Visit * Reason Onset Date Comments MEDICATION REFILL 07/22/2021 Encounter Details Date Type Department Care Team (Late st Contact Info) Description 07/22/2021 Refill [facility] Endocrinology, Diabetes and Metabolism [address] [place] [address], [place] [phone] Will Virgen MD [address] [place] [id number] MEDICATION REFILL Social History Tobacco Use Types Packs/Day Years Used Date Smoking Tobacco: Never Smokeless Tobacco: Never Alcohol Use Standard Drinks/Week Comments Not Currently 0 (1 standard drink = 0.6 oz pur e alcohol) twice a month Sex and Gender Information Value Date Recorded Sex Assigned at Not on file Legal Sex Male 5:36 AM CIRCULAR 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 Author Medication Management General Yes Sonia Martinez RN Follow-up with Diabetes Clinic as recommended by Provider General Yes Sonia Martinez, RN Plan meals Lifestyle Yes Sonia Martinez RN Note: Using meal neighborhood planner. 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
--- OUTSIDE RECORDS SUMMARY | 2024-10-08 16:23 | XMS_ITS | Encounter Summary ---
Author Organization [facility] Address [address] [facility] [place] [address] Care Team Providers Care Manager Corporate Communications Name Role Phone Harsh Tom DO Primary Care Provider + Reason for Visit * Reason Onset Date Comments MEDICATION REFILL 05/29/2021 Encounter Details Date Type Department Care Team (Late st Contact Info) Description 05/29/2021 Refill [facility] Endocrinology, Diabetes and Metabolism [address] [place] [address], [place] [phone] Jose Carolina MD [address] [place] [id number] MEDICATION REFILL Social History Tobacco Use Types Packs/Day Years Used Date Smoking Tobacco: Never Smokeless Tobacco: Never Alcohol Use Standard Drinks/Week Comments Not Currently 0 (1 standard drink = 0.6 oz pur e alcohol) twice a month Sex and Gender Information Value Date Recorded Sex Assigned at Not on file 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
--- OUTSIDE RECORDS SUMMARY | 2024-10-08 16:23 | XMS_ITS | Encounter Summary ---
Author Organization [facility] Address [address] [place] [address] Care Team Providers Care Eyeglass Lens Generator Name Role Phone JosesherylkyawHarsh lopez DO Primary Care Provider + Encounter Details Date Type Department Care Team (Late st Contact Info) Description 03/14/2024 Timetric Message Enc [facility] Multispecialty [facility] - [facility] [address] [facility], [address] [phone] [employer], [facility] Provider rescheduled appt Social History Tobacco Use Types Packs/Day Years Used Date Smoking Tobacco: Never Passive Smoke Exposure: Never Smokeless Tobacco: Never Alcohol Use Standard Drinks/Week Comments Yes 0 (1 standard drink = 0.6 oz pur e alcohol) occassional AUDIT-C Answer Date Recorded Frequency of Alcohol Consumption 2-4 times a wed06/26/2019 Average Number of Drinks 3 or 4 020 Frequency of Binge Drinking Never 06/13 PHQ-2 Answer Date Recorded Patient Health Questionnaire-2 Score 0 11/30/2023 Sex and Gender Information Value Date Recorded Sex Assigned at Not on file Legal Sex Male 12:13 PM RESOURCE AGENT Gender Identity Male 09/30/2021 9:48 AM CDT Sexual Orientation Straight 09/30/2021 9: 48 AM CDT 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
--- OUTSIDE RECORDS SUMMARY | 2024-10-08 16:23 | XMS_ITS | Clinical Summary ---
Author Organization [facility] Address [facility] [place] [address] Care Team Providers Care [place] Name Role Phone Harsh Tom Selvin RICE Primary Care Provider + Allergies No known active allergies Medications Blood Glucose Monitoring Suppl (ONE TOUCH ULTRA 2) w/Device Kit 2 each by Does not apply route daily. Active Lancets (ONETOUCH ULTRASOFT) lancets 2 each by Other route daily. Use as instructed Active Glucose Blood test strip 2 strips by Other route daily. Use as instructed Active HUMALOG 100 UNIT/ML injection (VIAL)Indication s:Type 1 diabetes mellitus without complication ([facility]) U 70 TO 100 UNITS VIA INSULIN PUMP D 30 mL 09/23/19 22 Active Acetone, Urine, Test (KETONE TEST) Strip see administration instructions. 09/02/19 22 Active Continuous Blood Gluc Sensor (DEXCOM G6 SENSOR) [facility] USE TO MONITOR GLUCOSE LEVELS, CHANGE AND MOVE SENSOR EVERY 10 DAYS 01/25/20 23 Active Continuous Blood Gluc Transmit (DEXCOM G6 TRANSMITTER) [facility] USE TO MONITOR GLUCOSE LEVELS, TRANSMITTER LAST 90 DAYS 01/25/20 23 Active losartan (COZAAR) 100 MG tabletIndication s:Proteinuria Take 1 tablet by mouth once daily 90 tablet 1 12/08/19 24 Active rosuvastatin (CRESTOR) 20 MG tabletIndication s:Hyperlipidemia take 1 tablet by mouth nightly at bedtime 90 tablet 1 12/08/19 24 Active sildenafil (VIAGRA) 100 MG tabletIndication s:Erectile dysfunction, unspecified erectile dysfunction type TAKE 1/2 TO 1 (ONE-HALF TO ONE) TABLET BY MOUTH ONCE DAILY NEEDED FOR ERECTILE DYSFUNCTION. APPOINTMENT NEEDED, PLEASE CONTACT OFFICE. 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) 07/08/2022 Abnormal weight gain 04/30/2022 Overview (07/08/2022): Last Assessment & Plan: Gained 40 lbs after improving diabetes control - we will check labs - asked patient to see the dietitian. Diabetic nephropathy associa ebony with type 1 diabetes mellitus ([facility]) 10/24/2021 Overview (01/05/2022): Last Assessment & Plan: Patient has been off LOsartan - start low dose Losartan 25 mg /day Type 1 diabetes mellitus wit h hyperglycemia ([facility]) 10/24/2021 Overview (01/05/2022): Last Assessment & Plan: Diagnosed at the age of [age] years old. Had DKA in September/2021 Control : not at target A1c 9.7% on 10/03/21 Kidney: Nephropathy with normal GFR Neuropathy : none Plan: Refer patient for pump training Continue same basal rate Use bolus before each meal based on carb intake. Monitor sugars 4 x per day Hypoglycemia symptoms and treatment reviewed with patient. Call if having low sugars. Ophthalmology exam on regular basis. Erectile dysfunction, unspecified erectile dysfu nction type 06/26/2019 Immunizations Immunization Administration Dates Next Due Tdap (Adacel) 06/26/2019 Tdap (Generic) 11/02/2012 Family History Medical History Relation Comments Diabetes Father type 2 Heart Attack Father Heart Disease Father Diabetes Paternal Grandfather Heart Attack Paternal Grandfather Heart Disease Paternal Grandfather Relation Status Comments Father Paternal Grandfather Social History Tobacco Use Types Packs/Day Years Used Date Smoking Tobacco: Never Passive Smoke Exposure: Never Smokeless Tobacco: Never Tobacco Cessation:Counseling Given: No Alcohol Use Standard Drinks/Week Comments Yes 0 (1 standard drink = 0.6 oz pur e alcohol) occassional AUDIT-C Answer Date Recorded Frequency of Alcohol Consumption 2-4 times a mon th 06/26/2019 Average Number of Drinks 3 or 4 020 Frequency of Binge Drinking Never 06/13 PHQ-2 Answer Date Recorded Patient Health Questionnaire-2 Score 0 11/30/2023 Sex and Gender Information Value Date Recorded Sex Assigned at Not on file Legal Sex Male 12:13 PM SR [employer]ISK MANAGEMENT CONSULTANT Gender Identity Male 09/30/2021 9:48 AM CDT Sexual Orientation Straight 09/30/2021 9: 48 AM CDT Occupation Industry Job Start Date Job End Date [employer] Not on file Not on file Not on file Last Filed Vital Signs Vital Sign Reading Time Taken Comments Blood Pressure 148/100 04/04/2024 2:33 PM SR [employer]ISK MANAGEMENT CONSULTANT Pulse 90 04/04/2024 1:54 PM SR RISK MANAGEMENT CONSULTANT Temperature 36.8 C (98.2 F) 04/04/2024 1:54 PM SR RISK MANAGEMENT CONSULTANT Respiratory Rate 16 04/04/2024 1:54 PM SR RISK MANAGEMENT CONSULTANT Oxygen Saturation 98% 04/04/2024 1:54 PM SR RISK MANAGEMENT CONSULTANT Inhaled Oxygen Concentration - - Weight 137.5 kg (303 lb 3.2 oz) 04/04/2024 1:54 PM SR RISK MANAGEMENT CONSULTANT Height 172.7 cm (5' 8) 04/04/2024 1:54 PM SR RISK MANAGEMENT CONSULTANT Body Mass Index 46.1 04/04/2024 1:54 PM SR RISK MANAGEMENT CONSULTANT Plan of Treatment Health Maintenance Due Date Last Done Comments Kidney Health Evaluation 1990 Hepatitis B Vaccines (1 of 3 - 19+ 3-dose series) 2009 Pneumococcal Vaccine: Pediatrics (0 to 5 Years) and At-Risk Patients (6 to 49 Years) (1 of 2 - PCV) 2009 HPV Vaccines (1 - 3-dose SCDM series) 2017 Annual Physical 06/25/2020 06/26/2019 COVID-19 Vaccine ( season) 2023 PHQ-2 (Physician [place]) 03/15/2024 11/30/2023 Hemoglobin A1C 03/17/2024 09/15/2023, 02/13, 07/08/2022, Additional history exists Diabetes: Retinopathy Eye Exam 07/19/2024 07/20/2023, 01/27/2023, 06/01/2022, Additional history exists Lipid Panel 09/14/2024 09/15/2023, 1210/2022, 04/30/2022, Additional history exists DTaP, Tdap and Td Vaccines (3 - Td or Tdap) 06/25/2029 06/26/2019, 11/02/2012 Hepatitis C Completed 10/03/2021 Meningococcal B Vaccine Aged Out No l onger eligible based on patient's age to complete this topic Meningococcal Vaccine Aged Out No ton reno eligible based on patient's age to complete this topic RSV Immunizations Under 20 Months Aged Out No longer eligible based on patient's age to complete this topic Procedures Procedure Name Priority Date/Time Associated Diagnosis Comments LIPID PANEL Routine 09/15/2023 9:13 AM CDT Type 1 diabetes mellitus with hyperglycemia Hyperlipidemia, unspecified hyperlipidemia type NAFLD (nonalcoholic fatty liver disease) HEMOGLOBIN, GLYCOSYLATED Routine 09/15/2023 8:53 AM CDT Type 1 diabetes mellitus with hyperglycemia DIABETIC RETINOPATHY EXAM (POSITIVE)(SCAN ORDER) Routine 07/20/2023 HEPATITIS C ANTIBODY W/RFX TO HCV RNA Routine 10/03/2021 12:00 PM CDT Need for hepatitis C screening test Annual physical exam from Last 3 Months or Most Recently Relevant to Health Maintenance Results * (ABNORMAL) LIPID PANEL (09/15/2023 9:13 AM CDT) CHOLESTEROL 192 <200 MG/DL 09/15/2023 3:55 PM CDT [facility] TRIGLYCERIDES 65 <150 MG/DL 09/15/2023 3:55 PM CDT [facility] HDL 70 >40 MG/DL 09/15/2023 3:55 PM CDT [facility] LDL-C 109(H) <100 MG/DL 09/15/2023 3:55 PM CDT [facility] VLDL CALCULATION 13 5 - 28 MG/DL 09/15/2023 3:55 PM CDT [facility] CHOL/HDL RATIO 2.7 0.0 - 4.0 09/15/2023 3:55 PM CDT [facility] LDL/HDL 1.6 0.41 - 2.13 09/15/2023 3:55 PM CDT [facility] NON HDL CHOLESTEROL 122 <140 MG/DL 09/15/2023 3:55 PM CDT [facility] 09/15/2023 9:13 AM CDT Harsh Tom DO LABORATORY Final Re sult Performing Organization Address [facility] de Phone Number [facility] [address] [place] [address], * A1C (BACK OFFICE) (09/15/2023 8:53 AM CDT) HGB A1C 6.4 % [facility] 09/15/2023 8:53 AM CDT Harsh Tom DO LABORATORY Final Re sult Performing Organization Address [facility] de Phone Number [facility] [address] [place] [address], * DIABETIC RETINOPATHY EXAM (POSITIVE) (07/20/2023) [facility] Scanned SCANNING Final Resu lt Performing Organization Address [facility] de Phone Number [facility] * HEPATITIS C ANTIBODY W/RFX TO HCV RNA ([facility] ONLY) (10/03/2021 12:00 PM CDT) HEPATITIS C AB NON-REACTI VE NON-REACT JANAY [facility] SIGNAL TO CUTOFF 0.01 <[address] [facility] Comment: HCV antibody was non-reactive. There is no laboratory evidence of HCV infection. In most cases, no further action is required. However, if recent HCV exposure is suspected, a test for HCV RNA (test code 06345) is suggested. For additional information please refer to http://education.[employer] [place].Dr. TATTOFF/faq/YBR11v9 (This link is being provided for informational/ educational purposes only.) 10/03/2021 12:0 0 PM CDT 10/04/2021 7:13 AM CDT Harsh Tom DO LABORATORY Final Re sult [facility] [address] [address] [facility] [place] [address] from Last 3 Months or Most Recently Relevant to Health Maintenance Insurance Care Teams [place] Relationship Specialty Start Date End Date Harsh Tom DO [address] [place] [id number] PCP - General FAMILY PRACTICE 06/26/19
--- OUTSIDE RECORDS SUMMARY | 2024-10-08 16:23 | XMS_ITS | Referral Summary ---
Author Organization [address] Address [address] [place] [address] Care Team Providers Care Table Attendant Name Role Phone Harsh Tom DO Primary Care Provide r Encounters Date Type Department Care Team Description 08/29/[address] [facility] Medical [facility] Primary Care at [address] [place] [address] Axel Del Rosario MD 08/08/[address] [facility] Medical [facility] Primary Care at [address] [place] [address] Axel Del Rosario MD 07/27/2024 Results Follow-Up 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 Medical [facility] Diabetes Endocrine Care at [address] [place] [address] Tasha Munoz, MULTI DISCIPLINED LANGUAGE ANALYST 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) (Primary Dx); Mixed diabetic hyperlipidemia associated with type 1 diabetes mellitus (HCC); Hypertension associated with type 1 diabetes mellitus (HCC); Tandem T slim Insulin pump in place; Class 3 severe obesity due to excess calories with serious comorbidity and body mass index (BMI) of 40.0 to 44.9 in adult from Last 3 Months Allergies No known active allergies Medications blood glucose diagnostic strip 9 Active OneTouch Delica Plus Lancet 30 gauge misc as directed Use to test blood glucose 3 times per day 2 Active blood-glucose transmitter (Dexcom G6 Transmitter) device USE TO MONITOR GLUCOSE LEVELS, TRANSMITTER LAST 90 DAYS 1 each 3 5 Active blood-glucose sensor (Dexcom G6 Sensor) device Inject 1 Device under the skin continuously . Change every 10 days. E10.9 9 each 3 5 Active Dexcom G7 Sensor device 1 Device continuously . Change every 10 days. E11.65 10 each 3 5 Active HumaLOG 100 unit/mL vial for injection USE IN INSULIN PUMP. MAX 100 UNITS DAILY 30 mL 1 5 Active losartan (COZAAR) 100 mg tablet Take 1 tablet (100 mg total) by mouth daily 90 tablet 4 5 Active rosuvastatin (CRESTOR) 20 mg tablet Take 1 tablet (20 mg total) by mouth nightly 90 tablet 4 5 Active sildenafiL (VIAGRA) 100 mg tablet Take 1 tablet (100 mg total) by mouth as needed for erectile dysfunction (xx) 10 tablet 11 5 Active ertugliflozin (Steglatro) 5 mg tablet Take 5 mg by mouth daily E10.9 90 tablet 4 5 Active Active Problems Problem Noted Date Diagnosed Date Mixed diabetic hyperlipidemi a associated with type 1 diabetes mellitus 09/29/2023 Assessment & Plan (01/20/2024 9:33 AM CORPORATION SECRETARY): This is a chronic condition which is close to goal . Goal is LDL less than 70 Continue rosuvastatin Encouraged to eat healthy, include fresh fruits and vegetables daily and avoid eating fried foods more than once per week. Assessment & Plan (09/29/2023 9:16 AM CDT): This is a chronic condition which is close to goal . Goal is LDL less than 70 Continue rosustatin. Encouraged to eat healthy, include fresh fruits and vegetables daily and avoid eating fried foods more than once per week. Encouraged to take medications as prescribed. Hypertension associated with type 1 diabetes geo litus 09/29/2023 Assessment & Plan (01/20/2024 9:34 AM CORPORATION SECRETARY): This is a chronic condition which is at goal. Goal is less than 140/90 Continue losartan Encouraged to monitor weight and B/P at home. Assessment & Plan (09/29/2023 9:17 AM CDT): This is a chronic condition which is at goal. Goal is less than 140/90 Personally reviewed labs. Continue losartan. Encouraged to monitor weight and B/P at home. Encouraged to void caffeine and excessive alcohol consumption as this will elevate B/P Encouraged to take medications as prescribed. Tandem T slim Insulin pump in place 05/10/2023 Assessment & Plan (07/26/2024 9:17 AM CDT): This is a chronic condition which is at goal. Download reviewed from 07/13/2024 to 07/26/2024 Type of insulin pump- tandem tslim Pump settings : Basal - 2 units IC -6 ISF -15 Active insulin time 5hrs. TARGET GLUCOSE-120 Avg BG - 162 Avg Total daily insulin-94 units Avg daily basal -48 units (51%) Avg daily bolus -45 units (49%) Interpretation- in target range 71%. 1% hypoglycemia. 29% hyperglycemia. Assessment & Plan (04/26/2024 10:03 AM CORPORATION SECRETARY): This is a chronic condition which is at goal. Download reviewed from 04/13/2024 to 04/26/2024 Type of insulin pump- tandem tslim Pump settings : Basal - 2 units IC -6 ISF -15 Active insulin time 5hrs. TARGET GLUCOSE-120 Avg BG - 149 Avg Total daily insulin-86 units Avg daily basal -46 units (54%) Avg daily bolus -40 units (46%) Interpretation- in target range 76%. 1% hypoglycemia. 23% hyperglycemia. Assessment & Plan (01/20/2024 9:35 AM CORPORATION SECRETARY): This is a chronic condition which is at goal. Download reviewed from 09/16/23 to 09/29/23 Type of insulin pump- tandem tslim Pump settings : Basal - 2 units IC -6 ISF -15 Active insulin time 5hrs. TARGET GLUCOSE-120 Avg BG - 161 Avg Total daily insulin-90 units Avg daily basal -48 units (54%) Avg daily bolus -41 units (46%) Interpretation_ in target range 71%. 1% hypoglycemia. 28% hyperglycemia. Assessment & Plan (09/29/2023 9:11 AM CDT): This is a chronic condition which is at goal. Download reviewed from 09/16/23 to 09/29/23 Type of insulin pump- tandem tslim Pump settings : Basal - 2 units IC -6 ISF -15 Active insulin time 5hrs. TARGET GLUCOSE-120 Avg BG - 162 Avg Total daily insulin-96 units Avg daily basal -50 units (52%) Avg daily bolus -48 units (46%) Interpretation_ in target range 66%. 1% hypoglycemia. 33% hyperglycemia. Assessment & Plan (05/10/2023 11:25 AM CORPORATION SECRETARY): This is a chronic condition which is at goal. Download reviewed from 04/27/23 to 05/10/23 Type of insulin pump- tandem tslim Pump settings : Basal - 2 units IC -6 ISF -15 Active insulin time 5hrs. TARGET GLUCOSE-120 Avg BG - 167 Avg Total daily insulin-97 units Avg daily basal -51 units (52%) Avg daily bolus -47 units (48%) Class 3 severe obesity due t o excess calories with serious comorbidity and body mass index (BMI) of 40.0 to 44.9 in adult 04/30/2022 Assessment & Plan (01/20/2024 9:36 AM CORPORATION SECRETARY): This is a chronic condition which continues 1 lbs. Weight gain since last office visit Encouraged healthy eating which includes a low carb diet. Avoiding processed foods, sweets and fried foods. Encouraged 30 minutes of walking at least 5 days per week Discussed that exercise can be broken down into small sessions- for example 2- 15 minutes sessions or 3- 10 minutes sessions. Assessment & Plan (01/20/2024 9:35 AM CORPORATION SECRETARY): >>ASSESSMENT AND PLAN FOR ABNORMAL WEIGHT GAIN WRITTEN ON 04/30/2022 9:47 AM BY GEORGE WARREN MD Gained 40 lbs after improving diabetes control - we will check labs - asked patient to see the dietitian. Assessment & Plan (01/20/2024 9:35 AM CORPORATION SECRETARY): >>ASSESSMENT AND PLAN FOR ABNORMAL WEIGHT GAIN WRITTEN ON 01/06/2023 9:33 AM BY GEORGE WARREN MD Patient continues to gain weight- not on a particular diet - asked patient to see the dietitian. - follow low calorie diet and increase exercise. Assessment & Plan (09/29/2023 9:13 AM CDT): This is a chronic condition which is worsening 13 lb weight gain since last office visit Discussed adding neha Lorenzo. Declined at this time. Discussed the need to exercise to reduce insulin resistance. Assessment & Plan (01/20/2024 9:35 AM CORPORATION SECRETARY): >>ASSESSMENT AND PLAN FOR CLASS 3 SEVERE OBESITY DUE TO EXCESS CALORIES WITH SERIOUS COMORBIDITY AND BODY MASS INDEX (BMI) OF 40.0 TO 44.9 IN ADULT (HCC) WRITTEN ON 05/10/2023 11:22 AM BY TASHA MUNOZ NP This is a chronic condition which is worsening 12 lb weight gain since last office visit Discussed adding Ozempic he would prefer to research it before starting a new medication >>ASSESSMENT AND PLAN FOR ABNORMAL WEIGHT GAIN WRITTEN ON 05/10/2023 11:21 AM BY TASHA MUNOZ NP This is a chronic condition which is worsening 12 lb weight gain since last office visit Discussed using Ozempic to reduce insulin resistance He would like to review and research it prior to starting this medication He states he sure does not eat like a 300 lb kari He reports elevated liver enzymes on labs done by his primary care doctor we will try and obtain Type 1 diabetes mellitus with diabetic microalbu minuria 10/24/2021 Assessment & Plan (01/20/2024 9:33 AM CORPORATION SECRETARY): This is a chronic condition which is at goal with worsening eye problems . Goal is less than 7%. Personally reviewed most recent A1c - Lab Results Component Value Date HGBA1C 6.6 01/20/2024 Personally reviewed POC blood sugar- at goal of 80-180 Lab Results Component Value Date POCGLU 126 01/20/2024 Medication- continue Tandum insulin pump with Humalog insulin via Basal 2 units/hr. Bolus 1:6 ratio., correction-15, target-120. We will try afrezza inhaled insulin for correction Monitor blood sugar continuously with cgm. Encouraged annual eye exam. Monofilament foot exam completed. Protective senses -intact eGFR- greater than 90 Kidney function- normal Urine microalbumin/creatinine ratio - at goal. Goal is <30. Continue losartan Assessment & Plan (09/29/2023 9:10 AM CDT): This is a chronic condition which is at goal . Goal is less than 7%. Personally reviewed most recent A1c - Lab Results Component Value Date HGBA1C 6.5 09/29/2023 Personally reviewed POC blood sugar- at goal of 80-180 Lab Results Component Value Date POCGLU 81 09/29/2023 Medication- continue Tandum insulin pump with Humalog insulin via Basal 2 units/hr. Bolus 1:6 ratio., correction-15, target-120 Monitor blood sugar continuously with cgm. Encouraged annual eye exam. last dilated eye exam [facility] Monofilament foot exam completed. Protective senses intact Personally reviewed CMP eGFR- >90 Kidney function-normal Urine microalbumin/creatinine ratio - not at goal. Goal is <30 Continue losartan Assessment & Plan (08/28/2022 9:57 AM CDT): Patient is on Losartan - monitor kidney functions on annual basis - continue Losartan daily. Assessment & Plan (01/29/2022 9:07 AM CORPORATION SECRETARY): Patient is on Losartan - reviewed diagnosis with patient - continue Losartan daily. Assessment & Plan (10/24/2021 11:18 AM CDT): Patient has been off LOsartan - start low dose Losartan 25 mg /day Resolved Problems Problem Noted Date Diagnosed Date Resolved Date Type 1 diabetes mellitus with hyperglycemia 10/24/2021 09/29/2023 Assessment & Plan (05/10/2023 11:20 AM CORPORATION SECRETARY): This is a chronic condition which is at goal of less than 7%. Personally reviewed most recent A1c - Lab Results Component Value Date HGBA1C 6.3 05/10/2023 Personally reviewed POC blood sugar- at goal 80-180 Lab Results Component Value Date POCGLU 144 05/10/2023 Medication- continue Tandum insulin pump with Humalog insulin via Basal 2 units/hr. Bolus 1:6 ratio., correction-15, target-120 Monitor blood sugar continuously with dexcom 6 sensor. Encouraged annual eye exam. Personally reviewed CMP eGFR- 120 Kidney function- normal Urine microalbumin/creatinine ratio - at goal <30 treated with losartan B/P today- at goal of <140/90. continue losartan Personally reviewed lipid panel. Close to Goal of less than 70. Continue rosuvastatin Assessment & Plan (01/06/2023 9:19 AM CDT): Diagnosed at the age of [age] years old. Had DKA in September/2021 Complicated with nephropathy and retinopathy Control : CGM data - no consistent hyper or hypoglycemia No frequent hypoglycemia A1c 7.0% on 01/06/23 A1c 6.4% on 08/28/22 A1c 6.2% on 04/30/22 A1c 7.1% on 01/29/22 A1c 9.7% on 10/03/21 Kidney: Nephropathy with normal GFR 120 on 04/30/22 Neuropathy : none Plan: Patient asked to watch diet and avoid fast foods. Keep track of calorie intake- Patient to see dietitian. Continue same basal rate Use bolus before each meal based on carb intake. Monitor sugars 4 x per day/ CGM Hypoglycemia symptoms and treatment reviewed with patient. Call if having low sugars. Ophthalmology exam on regular basis. Assessment & Plan (08/28/2022 9:56 AM CDT): Diagnosed at the age of [age] years old. Had DKA in September/2021 Complicated with nephropathy and retinopathy Control : CGM data - no consistent hyper or hypoglycemia No frequent hypoglycemia A1c 6.4% on 08/28/22 A1c 6.2% on 04/30/22 A1c 7.1% on 01/29/22 A1c 9.7% on 10/03/21 Kidney: Nephropathy with normal GFR 120 on 04/30/22 Neuropathy : none Plan: Patient asked to watch diet and avoid fast foods. Keep track of calorie intake- Patient to see dietitian. Continue same basal rate Use bolus before each meal based on carb intake. Monitor sugars 4 x per day/ CGM Hypoglycemia symptoms and treatment reviewed with patient. Call if having low sugars. Ophthalmology exam on regular basis. Assessment & Plan (04/30/2022 9:46 AM CORPORATION SECRETARY): Diagnosed at the age of [age] years old. Had DKA in September/2021 Control : CGM data - occasional post prandial hyperglycemia No frequent hypoglycemia A1c 6.2% on 04/30/22 A1c 7.1% on 01/29/22 A1c 9.7% on 10/03/21 Kidney: Nephropathy with normal GFR on 10/03/21 Neuropathy : none Plan: Patient asked to watch diet and avoid fast foods. Keep track of calorie intake- Patient to see dietitian. Continue same basal rate Use bolus before each meal based on carb intake. Monitor sugars 4 x per day/ CGM Hypoglycemia symptoms and treatment reviewed with patient. Call if having low sugars. Ophthalmology exam on regular basis. Assessment & Plan (01/29/2022 9:50 AM CORPORATION SECRETARY): Diagnosed at the age of [age] years old. Had DKA in September/2021 Control : CGM data - post prandial hyperglycemia improved control A1c 7.1% on 01/29/22 A1c 9.7% on 10/03/21 Kidney: Nephropathy with normal GFR Neuropathy : none Plan: Patient asked to watch diet and avoid fast foods. Refer to dietitian. Continue same basal rate Use bolus before each meal based on carb intake. Monitor sugars 4 x per day/ CGM Hypoglycemia symptoms and treatment reviewed with patient. Call if having low sugars. Ophthalmology exam on regular basis. Assessment & Plan (10/24/2021 11:26 AM CDT): Diagnosed at the age of [age] years [...] low sugars. Ophthalmology exam on regular basis. Social History Tobacco Use Types Packs/Day Years Used Date Smoking Tobacco: Never Smokeless Tobacco: Never Tobacco Cessation:Counseling Given: Not Answered Sex and Gender Information Value Date Recorded Sex Assigned at Not on file Legal Sex Male 5:20 AM CORPORATION SECRETARY Gender Identity Not on file Sexual Orientation Not on file Last Filed Vital Signs Vital Sign Reading Time Taken Comments Blood Pressure 130/78 07/26/2024 9:13 AM CDT Pulse 103 04/11/2019 3:39 PM CORPORATION SECRETARY Temperature 37.1 C (98.8 F) 04/11/2019 3:39 PM CORPORATION SECRETARY Respiratory Rate 20 04/11/2019 3:39 PM CORPORATION SECRETARY Oxygen Saturation 99% 04/11/2019 3:39 PM CORPORATION SECRETARY Inhaled Oxygen Concentration - - Weight 133.1 kg (293 lb 6.4 oz) 07/26/2024 9:13 AM CDT Height 172.7 cm (5' 8) 07/26/2024 9:13 AM CDT Body Mass Index 44.61 07/26/2024 9:13 AM CDT Plan of Treatment Not on file Procedures Procedure Name Priority Date/Time Associated Diagnosis Comments DIABETIC EYE EXAM Routine 09/19/2024 DIABETIC EYE EXAM Routine 08/08/2024 EGFR Routine 07/26/2024 9:39 AM CDT 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) THYROID FUNCTION CASCADE Routine 07/26/2024 9:39 AM CDT 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) LIPID PANEL Routine 07/26/2024 9:39 AM CDT 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) COMPREHENSIVE METABOLIC PANEL Routine 07/26/2024 9:39 AM CDT 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) ALBUMIN CREATININE RATIO, URINE Routine 07/26/2024 9:39 AM CDT 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 73 m2 Comment: Interpretive Data Reference Interval Normal >/= 90 mL/min/1.73m2 Mildly decreased* 60 - 89 mL/min/1.73m2 Mildly to moderately decreased 45 - 59 mL/min/1.73m2 Moderately to severely decreased 30 - 44 mL/min/1.73m2 Severely decreased 15 - 29 mL/min/1.73m2 Kidney Failure < 15 mL/min/1.73m2 *Relative to young adult level Estimated glomerular filtration rate is determined by the 2020 CKD-EPI equation recommended by the National Kidney Foundation (A Unifying Approach to GFR Estimation: Recommendations of the NKF-ASK Task Force on Reassessing the Inclusion of Race in Diagnosing Kidney Disease, JASN 2020). The CKD-EPI equation should not be used for patients with unstable renal function and has not been validated in children and those over 70. Current interpretive data was last reviewed 2021. Testing performed by: [facility], [address] [place] [address]., [address] Blood 07/26/2024 9:39 AM CDT 07/26/2024 6:54 PM CDT Tasha Munoz MULTI DISCIPLINED LANGUAGE ANALYST LAB BLOOD ORDERABLES Final Resu lt Performing Organization Address [facility] de Phone Number [facility] [address] [facility] [place] [address] * Thyroid Function [place] (07/26/2024 9:39 AM CDT) TSH 2.22 0.30 - 4.20 mcIUnit/mL Comment:Testing performed by : [address] [address] Blood 07/26/2024 9:39 AM CDT 07/26/2024 4:12 PM CDT Tasha Munoz MULTI DISCIPLINED LANGUAGE ANALYST LAB BLOOD ORDERABLES Final Resu lt Performing Organization Address [facility] de Phone Number [place] [phone] [facility] [address] * (ABNORMAL) Albumin Creatinine Ratio, Urine (07/26/2024 9:39 AM CDT) Albumin Ur 451.1 mg/L Comment: Interpretive Data No reference range established. Current interpretive data was last revised 2018. Testing performed by: [address] [address] Creatinine Ur 45.2 mg/dL BRIJESH Comment: Interpretive Data No reference range established. Current interpretive data was last revised 2018. Testing performed by: [address] [address] Albumin Creatinine Ratio, Ur 998(H) 1 - 29 mg/g BRIJESH Comment:Testing performed by : [address] [address] Urine 07/26/2024 9:39 AM CDT 07/26/2024 4:13 PM CDT us Tasha Munoz MULTI DISCIPLINED LANGUAGE ANALYST LAB URINE ORDERABLES Final Resu lt [address] Department of Laboratories [place], [place] [id number] * (ABNORMAL) Lipid panel (07/26/2024 9:39 AM CDT) Cholesterol 269(H) 30 - 199 mg/dL Comment: Interpretive Data Ages < or = 19 years Acceptable: <170 mg/dL Borderline high: 170-199 mg/dL High: >or= 200 mg/dL Ages > or = 20 years Desirable: <200 mg/dL Borderline high: 200-239 mg/dL High: >or= 240 mg/dL Literature References: 1. Expert Panel on Integrated Guidelines for Cardiovascular Health and Risk Reduction in Children and Adolescents. Pediatrics 2011;128:S213 2. NCEP Expert Panel. Circulation 2004;110:227 Current Interpretive Data was last revised on 2017. Testing performed by: [facility], [address] [place] [address]., [address] Triglycerides 77 <=149 mg/dL BRIJESH Comment: Interpretive Data Ages < or = 9 years Acceptable: <75 mg/dL Borderline high: 75-99 mg/dL High: >or= 100 mg/dL Ages 10 to 20 years Acceptable: <90 mg/dL Borderline high: 90-129 mg/dL High: >or= 130 mg/dL Ages > or = 20 years Desirable: <150 mg/dL Borderline high: 150-199 mg/dL High: 200-499 mg/dL Very high: >or= 499 mg/dL Literature References: 1. Expert Panel on Integrated Guidelines for Cardiovascular Health and Risk Reduction in Children and Adolescents. Pediatrics 2011;128:S213 2. NCEP Expert Panel. Circulation 2004;110:227 Current Interpretive Data was last revised on 2017. Testing performed by: [facility], [address] [place] [address]., [address] HDL 63 >=40 mg/dL BRIJESH Comment: Interpretive Data Ages < or = 19 years Acceptable: >45 mg/dL Borderline low: 40-45 mg/dL Low: <40 mg/dL Ages > or = 20 years Desirable: >or= 60 mg/dL Low: <40 mg/dL Literature References: 1. Expert Panel on Integrated Guidelines for Cardiovascular Health and Risk Reduction in Children and Adolescents. Pediatrics 2011;128:S213 2. NCEP Expert Panel. Circulation 2004;110:227 Current Interpretive Data was last revised on 2017. Testing performed by: [facility], [address] [place] [address]., [address] LDL, calculated 193(H) <=129 mg/dL BRIJESH FELIPE Comment: Interpretive Data Ages < or = 19 years Acceptable: <110 mg/dL Borderline high: 110-129 mg/dL High: >or= 130 mg/dL Ages > or = 20 years Optimal: <100 mg/dL Near optimal: 100-129 mg/dL Borderline high: 130-159 mg/dL High: >160 mg/dL Calculated using the Nithin LDL-C estimating equation. This equation was implemented on 2023. Prior to this date LDL-C was estimated using the Friedewald equation. Literature References: 1. Expert Panel on Integrated Guidelines for Cardiovascular Health and Risk Reduction in Children and Adolescents. Pediatrics 2011;128:S213 2. NCEP Expert Panel. Circulation 2004;110:227 3. Nithin Bettencourt et al. RENEA Cardiol. 2019July 13;5(5):540-548. doi: 10.1001/[email or web address] Current Interpretive Data was last revised on 2023. Testing performed by: [facility], [address] [place] [address]., [address] Non-HDL Cholesterol 206 mg/dL BRIJESH FELIPE Comment: Interpretive Data Ages < or = 19 years Acceptable: <120 mg/dL Borderline high: 120-144 mg/dL High: >145 mg/dL Ages > or = 20 years When triglycerides are >200 mg/dL, Non-HDL cholesterol is a secondary target of therapy with treatment goals that are 30 mg/dL greater than the LDL cholesterol target. Literature References: 1. Expert Panel on Integrated Guidelines for Cardiovascular Health and Risk Reduction in Children and Adolescents. Pediatrics 2011;128:S213 2. NCEP Expert Panel. Circulation 2004;110:227 Current Interpretive Data was last revised on 2017. Testing performed by: [address] [address] Chol/HDL ratio 4 CERNER Comment:Testing performed by : [address] [address] Blood 07/26/2024 9:39 AM CDT 07/26/2024 4:12 PM CDT Narrative CERNER CH - 07/26/2024 7:23 PM CDT These lab test should be done fasting. This means do not eat or drink for at least 12 hours prior to getting your blood drawn. Has the patient been fasting for 8 hours or more?->Yes us Tasha Munoz NP LAB BLOOD ORDERABLES Final Resu lt [address] Department [place] [address] * (ABNORMAL) Comprehensive metabolic panel (07/26/2024 9:39 AM CDT) Sodium 138 135 - 145 mmol/L Comment:Testing performed by : [address] [address] Potassium, pl 5.0(H) 3.3 - 4.9 mmol/L CERNER CH Comment:Testing performed by : [address] [address] Chloride 103 97 - 110 mmol/L CERNER Comment:Testing performed by : [address] [address] CO2 26 22 - 32 mmol/L CERNER CH Comment:Testing performed by : [address] [address] Anion gap 9 2 - 15 mmol/L CERNER CH Comment:Testing performed by : [address] [address] BUN 12 6 - 25 mg/dL CERNER CH Comment:Testing performed by : [address] [address] Creatinine 0.87 0.80 - 1.30 mg/dL CERNER CH Comment:Testing performed by : [address] [address] Glucose 161 70 - 199 mg/dL CERNER CH Comment: Interpretive Data Fasting glucose >/= 126 mg/dl is diagnostic for diabetes. Fasting is defined as no caloric intake for at least 8 hours. Fasting glucose between 100 mg/dl to 125 mg/dl is diagnostic of prediabetes. In a patient with classic symptoms of hyperglycemia or hyperglycemic crisis, a random glucose >/= 200 mg/dl is diagnostic for diabetes. In the absence of unequivocal hyperglycemia, results should be confirmed by repeat testing. The classification and Diagnosis of Diabetes Diabetes Care 2021; 46: S19-S40. Current interpretive data was last revised 2022. Testing performed by: [address] [address] Calcium 9.6 8.5 - 10.3 mg/dL CERNER CH Comment:Testing performed by : [address], [address] Bilirubin, total 0.2 0.1 - 1.2 mg/dL CERNER CH Comment:Testing performed by : [address] [address] Protein, pl 7.1 6.5 - 8.5 g/dL CERNER CH Comment:Testing performed by : [address] [address] Albumin 3.7 3.5 - 5.0 g/dL CERNER CH Comment:Testing performed by : [address] [address] Alk phos 83 40 - 130 Units/L CERNER CH Comment:Testing performed by : [address], [address] ALT 27 7 - 55 Units/L CERNER CH Comment:Testing performed by : [address], [address] AST 28 10 - 50 Units/L CERNER CH Comment:Testing performed by : [address], [address] Blood 07/26/2024 9:39 AM CDT 07/26/2024 4:12 PM CDT Tasha Munoz MULTI DISCIPLINED LANGUAGE ANALYST LAB BLOOD ORDERABLES Final Resu lt BRIJESH FELIPE [id number] [facility] [place] [address] * (ABNORMAL) POCT hemoglobin A1c (07/26/2024 9:19 AM CDT) Hemoglobin A1C, POC 6.4(A) 4.0 - 5.6 % Blood 07/26/2024 9:19 AM CDT Tasha Munoz MULTI DISCIPLINED LANGUAGE ANALYST POINT OF CARE TEST ORDERABLES F inal Result * POCT glucose (07/26/2024 9:14 AM CDT) Glucose Blood, POC 162 Normal Fasting 70 - 100, Random <200 mg/dL Blood 07/26/2024 9:14 AM CDT Tasha Munoz MULTI DISCIPLINED LANGUAGE ANALYST POINT OF CARE TEST ORDERABLES F inal Result from Last 3 Months Insurance [facility] Care Teams Table Attendant Relationship Specialty Start Date End Date Harsh Tom DO [address] [place] [address] [id number] PCP - General Family Medicine 09/22/21
--- OUTSIDE RECORDS SUMMARY | 2024-10-08 16:23 | XMS_ITS | Encounter Summary ---
Author Organization [facility] Address [address] [facility] [place] [address] Care Team Providers Care Administrative Fellow Name Role Phone Harsh Tom DO Primary Care Provider + Reason for Visit * Reason Onset Date Comments MEDICATION REFILL 09/19/2021 Encounter Details Date Type Department Care Team (Late st Contact Info) Description 09/19/2021 Refill [facility] End[facility], Diabetes and Metabolism [address] [place] [address], [place] [phone] Will Virgen MD [address] [place] [id number] MEDICATION REFILL Social History Tobacco Use Types Packs/Day Years Used Date Smoking Tobacco: Never Smokeless Tobacco: Never Alcohol Use Standard Drinks/Week Comments Not Currently 0 (1 standard drink = 0.6 oz pur e alcohol) twice a month Sex and Gender Information Value Date Recorded Sex Assigned at Not on file Legal Sex 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 documented as of this encounter Visit Diagnoses Diagnosis DM w/ coma type I, uncontrolled Type I (juvenile type) diabetes mellitus with other coma, uncontrolled documented in this encounter Care Teams Administrative Fellow Relationship Specialty Start Date End Date Harsh Tom DO [address] [place] [id number] PCP - General 10/03/19 documented as of this encounter
--- OUTSIDE RECORDS SUMMARY | 2024-10-08 16:23 | XMS_ITS | Clinical Summary ---
Author Organization [address] lto Address [address] [place] [address] Care Team Providers Care Ditch Inspector Name Role Phone Harsh Tom Primary Care Provide r Allergies No known active allergies Medications blood [...] by mouth daily E10.9 90 tablet 4 Active Active Problems Problem Noted Date Diagnosed Date Mixed diabetic hyperlipidemi a associated with type 1 diabetes mellitus 09/29/2023 Assessment & Plan (01/20/2024 9:33 AM PROCESS CONTROL ENGINEER): This is a chronic condition which is [...] 09/29/2023 Assessment & Plan (01/20/2024 9:34 AM PROCESS CONTROL ENGINEER): This is a chronic condition which is [...] hyperglycemia. Assessment & Plan (04/26/2024 10:03 AM PROCESS CONTROL ENGINEER): This is a chronic condition which is [...] hyperglycemia. Assessment & Plan (01/20/2024 9:35 AM PROCESS CONTROL ENGINEER): This is a chronic condition which is [...] hyperglycemia. Assessment & Plan (05/10/2023 11:25 AM PROCESS CONTROL ENGINEER): This is a chronic condition which is [...] 04/30/2022 Assessment & Plan (01/20/2024 9:36 AM PROCESS CONTROL ENGINEER): This is a chronic condition which continues [...] sessions. Assessment & Plan (01/20/2024 9:35 AM PROCESS CONTROL ENGINEER): >>ASSESSMENT AND PLAN FOR ABNORMAL WEIGHT GAIN WRITTEN ON 04/30/2022 9:47 AM BY GEORGE WARREN MD Gained 40 lbs after improving diabetes control - we will check labs - asked patient to see the dietitian. Assessment & Plan (01/20/2024 9:35 AM PROCESS CONTROL ENGINEER): >>ASSESSMENT AND PLAN FOR ABNORMAL WEIGHT GAIN [...] gain since last office visit Discussed adding nhea Lorenzo. Declined at this time. Discussed the need to exercise to reduce insulin resistance. Assessment & Plan (01/20/2024 9:35 AM PROCESS CONTROL ENGINEER): >>ASSESSMENT AND PLAN FOR CLASS 3 SEVERE [...] WRITTEN ON 05/10/2023 11:21 AM BY TASHA MUNOZ, TIMOTHY This is a chronic condition which is [...] 10/24/2021 Assessment & Plan (01/20/2024 9:33 AM PROCESS CONTROL ENGINEER): This is a chronic condition which is [...] daily. Assessment & Plan (01/29/2022 9:07 AM PROCESS CONTROL ENGINEER): Patient is on Losartan - reviewed diagnosis with patient - continue Losartan daily. Assessment & Plan (10/24/2021 11:18 AM CDT): Patient has been off LOsartan - start low dose Losartan 25 mg /day Resolved Problems Problem Noted Date Diagnosed Date Resolved Date Type 1 diabetes mellitus with hyperglycemia 10/24/2021 09/29/2023 Assessment & Plan (05/10/2023 11:20 AM PROCESS CONTROL ENGINEER): This is a chronic condition which is [...] basis. Assessment & Plan (04/30/2022 9:46 AM PROCESS CONTROL ENGINEER): Diagnosed at the age of [age] years [...] basis. Assessment & Plan (01/29/2022 9:50 AM PROCESS CONTROL ENGINEER): Diagnosed at the age of [age] years [...] low sugars. Ophthalmology exam on regular basis. Encounters Date Type Department Care Team Description 08/29/2024 Telephone [facility] at [address] [phone] Axel Del Rosario MD 08/08/2024 Telephone [facility] at [address] [phone] Axel Del Rosario MD 07/27/2024 Results Follow-Up [facility] Diabetes Endocrine Care at [address] [phone] Tasha Munoz, TIMOTHY Albumin Creatinine Ratio, Urine, Comprehensive metabolic panel, Lipid panel, Additional followed-up results: 2 07/26/2024 9:40 AM CDT Lab [facility] Outpatient Center at [address] [address] 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) 07/26/2024 9:00 AM CDT Office Visit [facility] Diabetes [facility]ocrine [facility] at [address] [place] [address] Tasha Munoz NP 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) (Primary Dx); Mixed diabetic hyperlipidemia associated with type 1 diabetes mellitus (HCC); Hypertension associated with type 1 diabetes mellitus (HCC); Tandem T slim Insulin pump in place; Class 3 severe obesity due to excess calories with serious comorbidity and body mass index (BMI) of 40.0 to 44.9 in adult from Last 3 Months Medical History Medical History Date Comments Diabetes mellitus type I (HCC) Social History Tobacco Use Types Packs/Day Years Used Date Smoking Tobacco: Never Smokeless Tobacco: Never Tobacco Cessation:Counseling Given: Not Answered Sex and Gender Information Value Date Recorded Sex Assigned at Not on file Legal Sex Male 5:20 AM PROCESS CONTROL ENGINEER Gender Identity Not on file Sexual Orientation Not on file Obstetrics History Last Filed Vital Signs Vital Sign Reading Time Taken Comments Blood Pressure 130/78 07/26/2024 9:13 AM CDT Pulse 103 04/11/2019 3:39 PM PROCESS CONTROL ENGINEER Temperature 37.1 C (98.8 F) 04/11/2019 3:39 PM PROCESS CONTROL ENGINEER Respiratory Rate 20 04/11/2019 3:39 PM PROCESS CONTROL ENGINEER Oxygen Saturation 99% 04/11/2019 3:39 PM PROCESS CONTROL ENGINEER Inhaled Oxygen Concentration - - Weight 133.1 kg (293 lb 6.4 oz) 07/26/2024 9:13 AM CDT Height 172.7 cm (5' 8) 07/26/2024 9:13 AM CDT Body Mass Index 44.61 07/26/2024 9:13 AM CDT Plan of Treatment Health Maintenance Due Date Last Done Comments Depression Screening 1990 Hepatitis C Screening 1990 Varicella Vaccines (1 of 2 - 13+ 2-dose series) 2003 Hepatitis B Screening 2008 Regular Well Visit/Exam 18-64 2008 Pneumococcal vaccine <65 (1 of 2 - PCV) 2009 HPV Vaccines (1 - 3-dose SCD M series) 2017 Influenza Vaccine (#1) 2024 Hemoglobin A1C 01/26/2025 07/26/2024, 04/15, 01/20/2024, Additional history exists Foot Exam 04/26/2025 04/26/2024, /07/2022, 08/28/2022, Additional history exists Albumin Creatinine Ratio, Urine 07/26/2025 07/26/2024, 09/15/2023, 03/11/2023, Additional history exists Lipid Panel 07/26/2025 07/26/2024, 07/0 05/2023, 09/15/2023, Additional history exists TSH Level 07/26/2025 07/26/2024, 07/0 05/2023, 09/15/2023, Additional history exists eGFR 07/26/2025 07/26/2024, 07/0 05/2023, 09/15/2023, Additional history exists Dilated Eye Exam 09/19/2025 09/19/2024, , 05/16/2024, Additional history exists DTaP/Tdap/Td Vaccine (3 - Td or Tdap) 06/25/2029 06/26/2019, 11/02/2012 Procedures Procedure Name Priority Date/Time Associated Diagnosis [...] Diabetic Eye Exam (09/19/2024) 09/19/2024 Historical Provider HEALTH MAINTENANCE Final Result * (ABNORMAL) Diabetic Eye Exam (08/08/2024) 08/08/2024 Historical Provider HEALTH MAINTENANCE Final Result * eGFR (07/26/2024 9:39 AM [...] was last reviewed 2021. Testing performed by: [facility], [address] [place] [address], [place]., [address] Blood 07/26/2024 9:39 AM CDT 07/26/2024 6:54 PM CDT Tasha Munoz NP LAB BLOOD ORDERABLES Final Resu lt BRIJESH [address] [facility] [place] [address] * Thyroid Function [place] (07/26/2024 9:39 AM CDT) Pathologist [facility] TSH 2.22 0.30 - 4.20 mcIUnit/mL Comment:Testing performed by : [facility], [address] [place] [address], [address] Blood 07/26/2024 9:39 AM CDT 07/26/2024 4:12 PM CDT Tasha Munoz INTERMEDIATE SCHOOL TEACHER LAB BLOOD ORDERABLES Final Resu lt Performing Organization Address [facility] de Phone Number BRIJESH [facility] [facility] [place] [address] * (ABNORMAL) Albumin Creatinine Ratio, Urine (07/26/2024 9:39 AM CDT) [facility] [address] Albumin Ur 451.1 mg/L Comment: Interpretive Data No reference range established. Current interpretive data was last revised 2018. Testing performed by: [address] [address] Creatinine Ur 45.2 mg/dL BRIJESH Comment: Interpretive Data No reference range established. Current interpretive data was last revised 2018. Testing performed by: [address] [address] Albumin Creatinine Ratio, Ur 998(H) 1 - 29 mg/g BRIJESH Comment:Testing performed by : [address] [address] Urine 07/26/2024 9:39 AM CDT 07/26/2024 4:13 PM CDT Tasha Munoz NP LAB URINE ORDERABLES Final Resu lt Performing Organization Address [facility] de Phone Number BRIJESH [address] [facility] [place] [address] * (ABNORMAL) Lipid panel (07/26/2024 9:39 AM [...] last revised on 2017. Testing performed by: [address] [address] Triglycerides 77 <=149 mg/dL BRIJESH Comment: Interpretive [...] last revised on 2017. Testing performed by: [address] [address] HDL 63 >=40 mg/dL [facility] Comment: Interpretive Data Ages < or = [...] last revised on 2017. Testing performed by: [address] [place]., [address] LDL, calculated 193(H) <=129 mg/dL BRIJESH Comment: Interpretive Data Ages < [...] 3. Nithin Bettencourt et al. RENEA Cardiol. 2020 July 13;5(5):540-548. doi: 10.1001/jamacardio.2020.0013 Current Interpretive Data was last revised on 2023. Testing performed by: [address] [address] Non-HDL Cholesterol 206 mg/dL BRIJESH Comment: Interpretive Data Ages < [...] last revised on 2017. Testing performed by: [address] [address] Chol/HDL ratio 4 BRIJESH Comment:Testing performed by : [address] [address] Blood 07/26/2024 9:39 AM CDT 07/26/2024 4:12 PM CDT Narrative BRIJESH FELIPE - 07/26/2024 7:23 PM CDT These lab test should be done fasting. This means do not eat or drink for at least 12 hours prior to getting your blood drawn. Has the patient been fasting for 8 hours or more?->Yes us Tasha Munoz NP LAB BLOOD ORDERABLES Final Resu lt [address] Department [place] [address] * (ABNORMAL) Comprehensive metabolic panel (07/26/2024 9:39 AM CDT) Sodium 138 135 - 145 mmol/L Comment:Testing performed by : [address] [address] Potassium, pl 5.0(H) 3.3 - 4.9 mmol/L [facility] Comment:Testing performed by : [address] [address] Chloride 103 97 - 110 mmol/L [facility] Comment:Testing performed by : [address] [address] CO2 26 22 - 32 mmol/L [facility] Comment:Testing performed by : [address] [address] Anion gap 9 2 - 15 mmol/L [facility] Comment:Testing performed by : [address] [address] BUN 12 6 - 25 mg/dL [facility] Comment:Testing performed by : [address] [address] Creatinine 0.87 0.80 - 1.30 mg/dL [facility] Comment:Testing performed by : [address] [address] Glucose 161 70 - 199 mg/dL [facility] Comment: Interpretive Data Fasting glucose >/= 126 [...] was last revised 2022. Testing performed by: [facility], [address] [place] [address]., [address] Calcium 9.6 8.5 - 10.3 mg/dL CERNER CH Comment:Testing performed by : [address] [address] Bilirubin, total 0.2 0.1 - 1.2 mg/dL CERNER CH Comment:Testing performed by : [facility], [address] [place] [address]., [address] Protein, pl 7.1 6.5 - 8.5 g/dL CERNER CH Comment:Testing performed by : [facility], [address] [place] [address]., [address] Albumin 3.7 3.5 - 5.0 g/dL CERNER CH Comment:Testing performed by : [address], [address] Alk phos 83 40 - 130 Units/L CERNER CH Comment:Testing performed by : [address] [address] ALT 27 7 - 55 Units/L CERNER CH Comment:Testing performed by : [address] [address] AST 28 10 - 50 Units/L CERNER CH Comment:Testing performed by : [address] [address] Blood 07/26/2024 9:39 AM CDT 07/26/2024 4:12 PM CDT us Tasha Munoz NP LAB BLOOD ORDERABLES Final Resu lt [address] Department [place] [address] * (ABNORMAL) POCT hemoglobin A1c (07/26/2024 9:19 AM CDT) Hemoglobin A1C, POC 6.4(A) 4.0 - 5.6 % Blood 07/26/2024 9:19 AM CDT Tasha Munoz INTERMEDIATE SCHOOL TEACHER POINT OF CARE TEST ORDERABLES F inal Result * POCT glucose (07/26/2024 9:14 AM CDT) Glucose Blood, POC 162 Normal Fasting 70 - 100, Random <200 mg/dL Blood 07/26/2024 9:14 AM CDT Tasha Munoz INTERMEDIATE SCHOOL TEACHER POINT OF CARE TEST ORDERABLES F inal Result from Last 3 Months Insurance [facility] [place] [address] Care Teams Ditch Inspector Relationship Specialty Start Date End Date Harsh Tom DO [address] [place] [address] PCP - General Family Medicine 09/22/21
--- OUTSIDE RECORDS SUMMARY | 2024-10-08 16:23 | XMS_ITS | Encounter Summary ---
Author Organization [facility] Address [address] [facility] [place] [address] Care Team Providers Care Aviation Electronic Warfare Operator Name Role Phone Harsh Tom DO Primary Care Provider + Reason for Visit * Reason Onset Date Comments MEDICATION REFILL 09/18/2021 Encounter Details Date Type Department Care Team (Late st Contact Info) Description 09/18/2021 Refill [facility] Endocr[facility]ology, Diabetes and Metabolism [address] [place] [address], [place] [phone] Will Virgen MD [address] [place] [id number] MEDICATION REFILL Social History Tobacco Use Types Packs/Day Years Used Date Smoking Tobacco: Never Smokeless Tobacco: Never Alcohol Use Standard Drinks/Week Comments Not Currently 0 (1 standard drink = 0.6 oz pur e alcohol) twice a month Sex and Gender Information Value Date Recorded Sex Assigned at Not on file 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
--- OUTSIDE RECORDS SUMMARY | 2024-10-08 16:25 | XMS_ITS | Continuity of Care Document ---
Author Organization [facility] Address [address] [place] [address] Phone Care Team Providers Care Epic Trainer Name Role Phone Danilo Perez MD Unavailable [...] on Encounter PREV VISIT, EST, AGE 18-39 [facility], [address] [place] [address] [place], [id number], tel:[phone] [facility] DM (chief complaint) cough1 (chief complaint) hypokalemi a1 (chief complaint) anemia1 (chief complaint) Type 1 diabetes mellitus without complicationsHypoka lemiaAnemiaDizzines sEncounter for general adult medical exam w abnormal findingsCoughEncntr for general adult medical exam w/o abnormal findings May-201 8 Chris Car[address]co. [address], [facility] [place], [id number] , [place]. tel:[phone] Referring Provider: Danilo Perez [address], [place], [place], [id number]. tel:[phone] PREV VISIT, EST, AGE 18-39 [facility], [address] [place], [id number], [place] tel:[phone] [facility] Medicine Physical (chief complaint) Encounter for general adult medical exam w abnormal findingsType 1 diabetes mellitus without complicationsAcute bronchitis, unspecified 7 Chris Carrasco. [address], [place], [place], [id number] , . tel:[phone] Referring Provider: Jim Fontaine [address], [place], [place], [id number]. tel:[phone] PREV VISIT, EST, AGE 18-39 [facility], [address], [place], [place], [id number], tel:[phone] [facility] Medicine Physical (chief complaint) Routine Medical ExamDietary surveillance and counselingRoutine Medical Exam 5 Chris Carrasco. [address], [place], [place], [id number] , . tel:[phone] Referring Provider: Jim Fontaine [address], [place], [place], [id number]. tel:[phone] Family History Family Member Type Diagnosis Age At Onset Father Problem (finding) Hypertension Mother Problem (finding) Anxiety Mother Problem (finding) Back Pain Father Problem (finding) Coronary artery disease Father Problem (finding) Diabetes mellitus Payers Payer name Insurance type Covered green party ID Authoriza tion(s) No Information Social [...] Pt states that he is out of [employer] inset 30 infusion system for 2 weeks [...] Mental Status Date Cognitive Assessment Orientation - [place] ed to time, place, person, situation.
[2024-10-08 16:26] VITALS: BP 149/79; PULSE 101; RESP 20; TEMP 36.7; O2SAT 100
--- NOTE | 2024-10-08 16:30 | ED.LOWEXIN ---
HPI - Extremity Injury (Lower) General Chief Complaint: Extremity Injury, Lower Stated Complaint: L foot pain Patient presents to the [facility] accompanied by spouse with complaints of pain to the outside of left foot that began yesterday. 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 Patient noted taking ibuprofen yesterday but no medication taken today. Patient reports over the last couple hours pain is gotten worse. Denies any new or different numbness or tingling in foot or toes, bruising, or redness. Related Data Home Medications ?Medication ?Instructions ?Recorded ?Confirmed ?Last Taken ?Type insulin lispro 100 unit/mL 1 ml continuous subcutaneous 08/27/21 08/27/21 Unknown History subcutaneous solution (Humalog infusion DAILY U-100 Insulin) sildenafil (pulm.hypertension) 20 3 tablet PO DAILY PRN Sexual 08/27/21 08/27/21 Unknown History mg tablet Activity losartan 100 mg tablet mg 10/08/24 Unknown History rosuvastatin 20 mg tablet mg 10/08/24 Unknown History Allergies Allergy/AdvReac Type Severity Reaction Status Date / Time adhesive Allergy Unknown Unknown Unverified 10/08/24 16:31 Review of Systems Constitutional: Constitutional: Reports as per HPI, Denies chills, Denies fatigue, Denies fever(s) and Denies weakness Eyes: Eyes: Reports no additional eye complaints ENT: Reports system reviewed and no additional complaints, except as documented Cardiovascular: Cardiovascular: Reports no additional cardiovascular complaints Respiratory: Respiratory: Reports no additional respiratory complaints Gastrointestinal: Gastrointestinal: Reports no additional gastrointestinal complaints Genitourinary: Genitourinary: Reports no additional male genitourinary complaints Musculoskeletal: Musculoskeletal: Reports as per HPI, Reports arthralgias, Reports joint swelling and Denies muscle cramps Integumentary/Breasts: Skin/Breast: Reports as per HPI, Denies pruritus, Denies rash and Denies skin ulcer Neurologic: Reports as per HPI, Denies numbness and Denies weakness Psychiatric: Psychiatric: Reports no additional psychiatric complaints Endocrine: Endocrine: Reports no additional endocrine complaints Hematologic/Lymphatic: Hematologic/Lymphatic: Reports no additional hematologic/lymphatic complaints Allergic/Immunologic: Allergic/Immunologic: Reports no additional allergic/immunologic complaints [facility] Past Medical History Medical History (Updated 07/27/25 @ 17:31 by WILL Velasquez) Type 1 diabetes Family History Family History (System 10/17/21 @ 12:03 by Hung Churchill) Father Family history of obesity Hypertension Family history of diabetes mellitus in first degree relative Mother Family history of obesity Family history of seizure disorder Grandparent Depression Asthma Diabetes mellitus Social History Social History (System 10/17/21 @ 12:03 by Hung Churchill) Smoking status: Never smoker Alcohol intake: never Substance use: never Spiritual care concerns: Yes Exam Const: General: healthy appearing and no acute distress Nutritional Appearance: well nourished Orientation/consciousness: patient oriented x3 Limitations: no limitations Resp: Effort & Inspection: normal respiratory effort Cardio: Rate: regular rate Skin: General skin exam: normal color Rashes: no rashes Wounds: no wounds Neuro: General: patient oriented x3 Speech: normal speech Gait exam (Neuro): gait abnormal ( Limited by pain) Extrem: Left lower extremity: foot Details: normal capillary refill, abnormal to inspection, tenderness Location: of the dorsal foot, abnormal ROM of toe, edema ( minimal) Location: of the dorsal foot, vascular exam Details: dorsalis pedis pulse present, posterior tibial pulse present and normal capillary refill and motor-sensory exam two point discrimination normal, light-touch normal and pin-prick normal; no unusual warmth, no abrasions, no lacerations, no ecchymosis, no crepitus, no foreign bodies and no puncture wound Psych: Mental Status: mental status grossly normal Affect: normal affect Attitude: cooperative Course Course Level of Care: Express Care Visit Vital Signs Vital signs: Vital Signs Temperature 98.1 F 10/08/24 16:26 Pulse Rate 101 H 10/08/24 16:26 Respiratory Rate 10/08/24 16:26 Blood Pressure 149/79 H 10/08/24 16:26 Pulse Oximetry 100 10/08/24 16:26 Oxygen Delivery Room Air 10/08/24 16:26 Temperature 98.1 F 10/08/24 16:26 Pulse Rate 101 H 10/08/24 16:26 Respiratory Rate 20 10/08/24 16:26 Blood Pressure 149/79 H 10/08/24 16:26 Pulse Oximetry 100 10/08/24 16:26 Oxygen Delivery Room Air 10/08/24 16:26 MDM - Extremity Injury (Lower) MDM Narrative Medical decision making narrative: x-rays ordered. Spoke with patient and noted fracture on x-ray. Patient does note that they have a walking boot at home. Will place in postop shoe at this time until they can get home and put on the walking boot. Discharge instructions reviewed with patient, as well as provided in writing per nursing staff. The instructions also include specific and strict return/GO TO THE ER as well as f/u information. All questions have been answered, and the patient deny any further questions with discharge and discharge plan. Differential Diagnosis Differential diagnosis: Likely ankle sprain and strain, fracture of toe and ankle fracture Medical Records Attestation: I reviewed the patient's medical records. Imaging Data Attestation: I personally reviewed and interpreted this imaging study as follows: My impression: Obvious fracture noted to proximal 4th and 5th metatarsal Radiologist's impression: IMPRESSION: Transverse fractures of the proximal left third through fifth metatarsals. 2 mm distraction noted in the fifth metatarsal fracture. Sclerotic margins indicated these may be subacute fractures. Reviewed, dictated and finalized at location K. Discharge Plan Discharge Clinical Impression: Fracture of fifth metatarsal bone of left foot, Fracture of fourth metatarsal bone of left foot, Fracture of third metatarsal bone of left foot Patient Disposition: Home Condition: Stable Instructions: Antibiotic Form, Foot Fracture in Adults (ED) Additional Instructions: There is a fracture shown your x-ray. We have placed you in an immobilization keep this all times. May remove to shower. Call the orthopedic physician you have been given to schedule an appointment as soon as possible. Ensure to take a disc of your x-ray results with you. Ice to the area 15-20 minutes 4-6 times a day until follow up with orthopedics. Minimize activities and rest the affected area as much as possible. 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 You may take over the counter tylenol and ibuprofen as needed for pain. May use the tramadol as needed for severe pain. This medication can make you drowsy do not drive, drink alcohol or operate heavy machinery while taking this medication. If you notice significantly increased pain, redness, and numbness, or tingling does to the emergency room for further evaluation of symptoms. Patient Language: Spanish Prescriptions: New tramadol 50 mg tablet 50 mg PO Q6H PRN (Reason: pain) Qty: 20 0RF No Action losartan 100 mg tablet rosuvastatin 20 mg tablet insulin lispro [Humalog U-100 Insulin] 100 unit/mL solution 1 ml continuous subcutaneous infusion DAILY Rx Instructions: Inject 70 to 100 units subcutaneous once daily to insulin pump sildenafil (pulm.hypertension) 20 mg tablet 3 tablet PO DAILY PRN (Reason: Sexual Activity) Rx Instructions: Take 3 tablets daily 30 minutes prior to sexual activity. (DME) blood-glucose meter [OneTouch Verio Flex meter] Mis Qty: 1 0RF Rx Instructions: May substitute to in-stock meter and/or covered by insurance. Use As Directed (DME) OneTouch Verio test strips Strip Qty: 1 0RF Rx Instructions: May substitute to in-stock and/or covered by insurance strips. Use As Directed (DME) lancets [OneTouch Delica Plus Lancet] 30 gauge misc Qty: 1 0RF Rx Instructions: May substitute to in-stock and/or covered by insurance lancets. Use As Directed (DME) Ketone Urine Test Strip See Rx Instructions .Route Qty: 50 0RF Rx Instructions: As directed insulin lispro [Humalog U-100 Insulin] 100 unit/mL solution See Rx Instructions .ROUTE .COMPLEX Qty: 90 0RF Rx Instructions: use 70-100u via Insulin Pump daily; please dispense 90 day supply thank you Follow-up/Referrals: [facility] [Provider Group] (Address [address] [place] [id number] ) Vaishali,DO Harsh [Primary Care Provider] - Time of Disposition: 17:31
== END 2024-10-08 17:38 | disposition home or self-care (01) ==
PROVIDERS: Emergency Provider Nurse Practitioner Family; PCP Student in an Organized Health Care Education/Training Program
DX: S92.332A Displaced fracture of third metatarsal bone, left foot, initial encounter for closed fracture (principal); S92.342A Displaced fracture of fourth metatarsal bone, left foot, initial encounter for closed fracture; S92.352A Displaced fracture of fifth metatarsal bone, left foot, initial encounter for closed fracture; X58.XXXA Exposure to other specified factors, initial encounter; Y93.01 Activity, walking, marching and hiking; E10.9 Type 1 diabetes mellitus without complications; Z79.84 Long term (current) use of oral hypoglycemic drugs
CPT/HCPCS: 73630; 99214; G0463